=== PATIENT | male | born 1950 | race Caucasian/White ===

== ENCOUNTER 2016-04-18 02:57 | Observation (INO) ==
--- NOTE | 2016-04-18 03:14 | Emergency Department Note ---
Disposition Clinical Impression: Pneumonia, Abdominal pain Disposition: Admitted As Inpatient Condition: Fair Referrals: Manisha Crespo MD [Primary Care Provider] - Forms: Work/School Release, ED Satisfaction Letter Time of Disposition: 09:20 ([facility] [place]) Abdominal Pain HPI - General Chief Complaint: ED Abdominal Pain Stated Complaint: Pain when using bathroom, became pale, diaphoretic Time Seen by Provider: 04/18/16 03:01 Source: EMS, other (caregiver call and advised of episode) Mode of arrival: EMS Limitations: language barrier, physical limitation, other (DD) Nursing Notes Reviewed: Yes Vital Signs Reviewed: Yes - History of Present Illness HPI Narrative: Developmentally disabled 66-year-old male presents emergency room who was trying to have a bowel movement apparently had a syncopal episode while on the toilet is unclear whether he passed out or nearly passed out that the patient was noted to have a pulse and was still breathing and EMS found him stated that he was still somewhat diaphoretic and lightheaded patient is moaning and groaning upon presentation emergency room when asked if his belly hurt he shakes his head yes and moans no reported history of fever chills cough congestion unknown last bowel movement unknown last actual urination patient appears to be extremely agitated and uncomfortable Pt Subjective Complaint: abdominal pain Onset (ago): unknown Consistency: constant Location: diffuse Pain Severity: severe Quality: cramping Worsens with: movement Associated symptoms: Reports: constipation, syncope (near). Denies: nausea, vomiting, diarrhea, fever, chills, dysuria, hematemesis, hematochezia, melena, anorexia Treatments prior to arrival: none - Related Data Home Medications Medication Instructions Recorded Confirmed Allopurinol [Zyloprim] 100 mg PO DAILY 11/11/14 09/15/15 Calcium Carbonate/Vitamin D3 1 each PO DAILY 11/11/14 09/15/15 [Calcium 500-Vit D3 400 Tablet] Docusate Sodium [Dulcolax Stool 100 mg PO BID 11/11/14 09/15/15 Softener] Finasteride 5 mg PO DAILY 11/11/14 09/15/15 Folic Acid/Mv,Fe,Min [Centrum 1 each PO DAILY 11/11/14 09/15/15 Multivitamin Tab Chew] Galzin 50 mg PO DAILY 11/11/14 09/15/15 Hydrochlorothiazide 12.5 mg PO DAILY 11/11/14 09/15/15 Levothyroxine Sodium [Synthroid] 200 mcg PO DAILY 11/11/14 09/15/15 Magnesium Oxide [Magnesium] 400 mg PO DAILY 11/11/14 09/15/15 Niacin 500 mg PO DAILY 11/11/14 09/15/15 Olopatadine HCl [Patanol] 5 ml OP BID 11/11/14 09/15/15 Peg 400/Hypromellose/Glycerin 15 ml OP BID 11/11/14 09/15/15 [Artificial Tears Drops] Primidone [Mysoline] 50 mg PO TID 11/11/14 09/15/15 Rivaroxaban [Xarelto] 20 mg PO DAILY 11/11/14 09/15/15 Tamsulosin HCl [Flomax] 0.4 mg PO DAILY 11/11/14 09/15/15 Phenytoin [Dilantin] 100 mg PO TID 03/14/15 09/15/15 Acetaminophen [Tylenol] 650 mg PO DAILY 09/15/15 09/15/15 Calcium Carbonate/Vitamin D3 1 each PO 09/15/15 [Oyster Shell 500-Vit D3 200 Tb] Levothyroxine [Synthroid] 25 mcg PO DAILY 09/15/15 09/15/15 Previous Rx's Medication Instructions Recorded Azithromycin [Zithromax] 250 mg PO Q24H #3 tablet 09/16/15 Cefuroxime PO [Ceftin] 500 mg PO Q12HR #6 tablet 09/16/15 Lactobacillus [Culturelle] 1 each PO BID #6 cap.sprink 09/16/15 Allergies Allergy/AdvReac Type Severity Reaction Status Date / Time Cinnamon Allergy See Verified 09/15/15 09:25 Comments clove Allergy See Verified 09/15/15 09:25 Comments Sulfa (Sulfonamide Allergy Hives Verified 09/15/15 09:25 Antibiotics) trimethoprim Allergy Hives Verified 09/15/15 09:25 All systems ED: reviewed and negative except as stated. Constitutional: Denies: fever, chills, weakness Eyes: Denies: vision change ENT ED: Denies: ear pain Cardiovascular: Reports: syncope (near). Denies: chest pain, palpitations Respiratory: Denies: cough, dyspnea, wheezes Gastrointestinal: Reports: abdominal pain, nausea, constipation. Denies: vomiting Genitourinary: Denies: urgency, dysuria, frequency, hematuria Musculoskeletal: Denies: back pain, neck pain Integumentary: Denies: rash, abrasion Neurological: Denies: headache Psychiatric: Denies: anxiety Endocrine: Denies: fatigue Hematological/Lymphatic: Denies: easy bleeding Allergic/Immunologic: Denies: facial swelling Abdominal Pain PMH - Past Medical History Medical history: Reports: arthritis, DVT, peripheral artery disease, seizures, thyroid disease, other (DD) Male Surgical History: Reports: other Psychiatric history: Reports: no psych history - Social History Smoking status: Never smoker Alcohol use: Reports: none Drug use: Reports: none Physical Exam - General Limitations: language barrier, physical limitation, other (DD) General appearance: alert, other (agitated) - Head Head exam: atraumatic, normocephalic, normal inspection - Eye Eye exam: Present: normal appearance, PERRL, EOMI, other (Low-set ears long face Downs appearance) - ENT ENT exam: normal exam, normal oropharynx, mucous membranes moist, TM's normal bilaterally, normal external ear exam - Neck Neck exam: Present: normal inspection, full ROM, trachea midline - Chest Chest inspection: Present: normal inspection, symmetric chest wall rise - Respiratory Respiratory exam: Present: normal lung sounds bilaterally - Cardiovascular Cardiovascular exam: Present: regular rate, normal rhythm, normal heart sounds - Abdominal Exam Abdominal exam: Present: soft, tenderness, distention, guarding, diminished bowel sounds, other (tympanetic). Absent: mass, pulsatile mass - Expanded Upper Extremity Exam Shoulder exam: Present: normal inspection, full ROM Arm exam: Present: normal inspection, full ROM Elbow exam: Present: normal inspection, full ROM Forearm/Wrist exam: Present: normal inspection, full ROM Hand exam: Present: normal inspection, full ROM Vascular exam: Normal: capillary refill, radial pulse - Expanded Lower Extremity Exam Hip/Pelvis exam: Present: normal inspection, full ROM Upper leg exam: Present: normal inspection, full ROM Knee exam: Present: normal inspection, full ROM Lower leg exam: Present: normal inspection, full ROM Ankle exam: Present: normal inspection, full ROM Foot/toe exam: Present: normal inspection, full ROM Neurovascular/Tendon exam: Absent: motor deficit, sensory deficit, tendon deficit - Back Exam Back exam: Present: normal inspection, full ROM - Neurological Exam Neurological exam: Present: alert, oriented X3, CN II-XII intact - Psychiatric Psychiatric exam: Present: agitated - Skin Skin exam: Present: warm, dry, intact, normal color Course Course Narrative: patient immediately seen and examined CAT scan laboratory data wereordered - Reevaluation(s) Reevaluation #1: Patient is resting comfortably after receiving Haldol we will start an IV and he can also get some sleep he was started with his initial dose of antibiotics here in the emergency room with Dr. Pringle agreed for admission after getting laboratory results patient [facility] stable condition Vital Signs Temperature 98.6 F 04/18/16 03:03 Pulse Rate 82 04/18/16 03:03 Respiratory Rate 18 04/18/16 03:03 Blood Pressure 122/48 04/18/16 03:03 O2 Sat by Pulse Oximetry 93 L 04/18/16 03:03 Temperature 0 F L 04/18/16 04:43 Pulse Rate 89 04/18/16 07:00 Respiratory Rate 18 04/18/16 07:00 Blood Pressure 79/57 04/18/16 07:00 O2 Sat by Pulse Oximetry 96 04/18/16 07:00 Oxygen Delivery Oxygen Delivery Nasal Cannula Abdominal Pain - MDM Narrative Medical decision making narrative: Patient also has considerations for congestive heart failure pneumonia or infectious etiology even C. difficile - Differential Diagnosis Differential Diagnosis: Likely: abdominal pain non-specific, constipation, colonic obstruction, small bowel obstruction - Medical Records Medical records reviewed: Yes I reviewed the patient's medical records. - Lab Data Lab results reviewed: Yes I reviewed the patient's lab results. - Radiology Data Radiology results reviewed: Yes I reviewed the patient's radiology results. - EKG Data EKG attestation: Yes I reviewed and interpreted this EKG. EKG results narrative: Normal sinus rhythm rate 87. [address] 339 axis Critical Care Time Critical Care Time: Yes Total Critical Care Time: 25 Attestation: Critical care performed:25 min patient being developmentally disabled trying to figure out the etiology termination of where the pain or discomfort is coming from this individual because is not able to carry on a conversation also had was done initially results and this did take significantly longer because of delay from laboratory patient was transferred to [facility] for further care management after discussion with Time is exclusive of separately billable procedures. Time includes: direct patient care, patient reassessment, coordination of patient care, interpretation of data (laboratory data, radiology data, and respiratory data), review of patient's medical records, medical consultation and documentation of patient care. Procedures included in critical care time: Procedures excluded from critical care time:
[2016-04-18] MEDS ORDERED: Haloperidol Lactate 5 MG/ML VIAL IM ONE (05:16)
[2016-04-18] MEDS ORDERED: *HR* LORazepam 2 MG/ML VIAL IM ONE (05:17)
[2016-04-18] MEDS ORDERED: Bumetanide 1 MG/4 ML VIAL IVP ONE (07:19)
[2016-04-18] MEDS ORDERED: Levofloxacin 500 MG/100 ML 500 MG/100 ML BAG IVPB STA (07:36)
[2016-04-18 08:13] LABS: INR 1.3; Prothrombin Time 14.6 Seconds (9.4-12.1)
[2016-04-18 08:15] LABS: Activated Partial Thrombo Time 47.8 Seconds (26.0-36.0)
[2016-04-18 08:18] LABS: Basophils % 0.2 %; Eosinophils % 0.1 %; Immature Granulocytes % 0.4 % (0-4); Lymphocytes # 0.7 K/mcL (0.6-4.6); Lymphocytes % 4.1 %; Mean Corpuscular HGB Conc 33.3 g/dL (31.6-35.5); Mean Corpuscular Hemoglobin 32.9 pg (28.0-33.3); Mean Corpuscular Volume 98.7 fL (83.0-100.0); Mean Platelet Volume 10.3 fL (9.4-12.4); Monocytes % 5.8 %; Platelet Count 163 K/mcL (140-400); Red Blood Count 4.56 M/mcL (4.19-5.50); Red Cell Distribution Width 15.8 % (11.5-14.5); Segmented Neutrophils % 89.4 %
[2016-04-18 08:26] LABS: Neutrophils # 15.4 K/mcL (1.6-8.9)
[2016-04-18 08:52] LABS: BUN/Creatinine Ratio 12 (6-26); Blood Urea Nitrogen 15 mg/dL (8-26); Calcium 9.3 mg/dL (8.6-10.8); Carbon Dioxide 23 mEq/L (19-29); Chloride 101 mEq/L (98-109); Glucose 131 mg/dL (70-99); Osmolality,Calculated 291 (280-300); Potassium 4.3 mEq/L (3.5-4.5); Sodium 139 mEq/L (136-145); eGFR For African Americans > 60 (> 60); eGFR For Non-African Americans 55 (> 60)
[2016-04-18] MEDS ORDERED: *HR* Dextrose 50 % in Water (Syg) 50 ML SYRINGE IVP PRN (10:53)
[2016-04-18] MEDS ORDERED: Ondansetron 4 MG/2 ML VIAL IVP PRN (10:53)
[2016-04-18] MEDS ORDERED: Dextrose Gel 15 GM PO PRN ×2 (10:53)
[2016-04-18] MEDS ORDERED: D5% in Water 1,000 ML IV PRN (10:53)
[2016-04-18] MEDS ORDERED: 0.9 % Sodium Chloride 1,000 ML IVC SCH (10:53)
[2016-04-18] MEDS ORDERED: Naloxone 0.4 MG/ML INJ IVP PRN (10:53)
[2016-04-18 11:01] LABS: Bilirubin,Urine Negative (Negative); Blood,Urine Negative (Negative); Clarity,Urine Clear (Clear); Color,Urine Yellow (Yellow); Glucose,Urine (UA) Normal (Normal); Ketones,Urine Trace mg/dL (Negative); Leukocyte Esterase,Urine Negative (Negative); Nitrite,Urine Negative (Negative); Protein,Urine Negative (Neg-Trace); Urobilinogen,Urine Normal (Normal)
[2016-04-18] MEDS: Insulin LISPRO 300 UNITS/3 ML VIAL SQ SCH ×2 (12:20→22:02)
--- NOTE | 2016-04-18 14:35 | Internal Med History&Physical ---
Date of Encounter: 04/18/16 Time of Encounter: 14:10 Assessment and Plan (1) Pneumonia Current visit: Yes Status: Acute He was given Levaquin in emergency room. I will continue this with lactobacillus. Qualifiers: Pneumonia type: due to unspecified organism Laterality: bilateral Lung location: lower lobe of lung Qualified Code(s): J18.9 - Pneumonia, unspecified organism (2) Azotemia Current visit: No Status: Acute Will hold hydrochlorothiazide and recheck labs in a.m. (3) Hyperuricemia Current visit: No Status: Chronic We will check uric acid level in a.m. Internal Medicine - H&P: HPI Chief complaint: Near syncope Admitted From: Home Plans for Post Hospital Care: Home History of present illness: Mr. Tracey is a 66 year old male who was sent to emergency room by the [facility] staff after he had a near syncope/syncope episode while sitting on the toilet. He is nonverbal. In the emergency room he nodded yes when asked if his belly hurt. CT showed no acute abdominal changes but did reveal bibasilar infiltrates. Leukocytosis present. He was admitted to [facility] floor with diagnosis of pneumonia. He was admitted to [facility] September 2015 with a diagnosis of bronchitis. He has been hospitalized March 2015, September 2014, and March 2014 with pneumonia. His smoking history is not known. A CT of the chest was done September 2014 which showed right lung infiltrate. Past Med Surg Social Fam HX - Past Medical History Medical history: arthritis, DVT, peripheral artery disease, seizures, thyroid disease, other (DD) Psychiatric history: no psych history - Social History Smoking Status: Never smoker Smokeless Tobacco Status: No Alcohol use: none Drug use: none Internal Medicine - H&P: Meds Allopurinol [Zyloprim] 100 mg PO DAILY 11/11/14 [History] Calcium Carbonate/Vitamin D3 [Calcium 500-Vit D3 400 Tablet] 1 each PO DAILY 07/23 [History] Docusate Sodium [Dulcolax Stool Softener] 100 mg PO BID 11/11/14 [History] Finasteride 5 mg PO DAILY 11/11/14 [History] Folic Acid/Mv,Fe,Min [Centrum Multivitamin Tab Chew] 1 each PO DAILY 11/11/14 [ History] Galzin 50 mg PO DAILY 11/11/14 [History] Hydrochlorothiazide 12.5 mg PO DAILY 11/11/14 [History] Levothyroxine Sodium [Synthroid] 200 mcg PO DAILY 11/11/14 [History] Magnesium Oxide [Magnesium] 400 mg PO DAILY 11/11/14 [History] Niacin 500 mg PO DAILY 11/11/14 [History] Olopatadine HCl [Patanol] 5 ml OP BID 11/11/14 [History] Peg 400/Hypromellose/Glycerin [Artificial Tears Drops] 15 ml OP BID 11/11/14 [ History] Primidone [Mysoline] 50 mg PO TID 11/11/14 [History] Rivaroxaban [Xarelto] 20 mg PO DAILY 11/11/14 [History] Tamsulosin HCl [Flomax] 0.4 mg PO DAILY 11/11/14 [History] Phenytoin [Dilantin] 100 mg PO TID 03/14/15 [History] Acetaminophen [Tylenol] 650 mg PO DAILY 09/15/15 [History] Calcium Carbonate/Vitamin D3 [Oyster Shell 500-Vit D3 200 Tb] 1 each PO [History] Levothyroxine [Synthroid] 25 mcg PO DAILY 09/15/15 [History] Azithromycin [Zithromax] 250 mg PO Q24H #3 tablet 09/16/15 [Rx] Cefuroxime PO [Ceftin] 500 mg PO Q12HR #6 tablet 09/16/15 [Rx] Lactobacillus [Culturelle] 1 each PO BID #6 cap.sprink 09/16/15 [Rx] Allergies Cinnamon Allergy (Verified 09/15/15 09:25) See Comments clove Allergy (Verified 09/15/15 09:25) See Comments Sulfa (Sulfonamide Antibiotics) Allergy (Verified 09/15/15 09:25) Hives trimethoprim Allergy (Verified 09/15/15 09:25) Hives All Systems PM: A 10-system review of systems was performed and is negative for pertinent findings except as documented above in the HPI. Review of systems: Review of systems is obtained from old records since he is nonverbal. Gen.: His weight has decreased from 211 pounds at the September 2014 hospitalization to present weight of approximately 180 pounds. Cardiovascular: He has a history of DVT and varicose veins. There is no documented hypertension heart failure or other cardiovascular disease. A stress test was reportedly done in 2008 with results not known. Respiratory: As per history of present illness GI: He has chronic constipation, diverticulosis, and bowel resection 2004 not otherwise specified. There is no documented disorders with his liver gallbladder or exocrine pancreas. He had a swallowing evaluation during his hospital stay September 2014 which showed no evidence of laryngeal penetration or aspiration. There was coughing noted after swallowing thin liquid barium. He was placed on pureed diet with nectar thick liquids. : He has presumed BPH and had urinary retention during a August 2014 hospitalization. He is on Flomax.. He has been diagnosed with CKD stage III. There is no other documented kidney or bladder disorders Endocrine: He has hypothyroidism, hyperuricemia, and presumed hyperlipidemia. He does not have known diabetes Neurologic: He is on Dilantin presumably for seizures. He has not had large distribution strokes. He does have MRDD/Down syndrome as per above Hematology/oncology: He has no documented blood disorders or internal malignancy. He has had thrombocytopenia in the past that resolved. Psychiatric: He has no known anxiety, depression, or other mental health issues Musk skeletal: He has no known gout or osteoporosis. He has mild arthritis. Dermatologic. He has diagnosis of dyshidrotic eczema, onychomycosis, and chronic venous stasis pigmentation changes - Constitutional Vitals: Temp Pulse Resp BP Pulse Ox 100.2 F H 96 18 128/80 95 04/18/16 11:02 04/18/16 10:58 04/18/16 11:02 04/18/16 11:02 04/18/16 10:58 Exam: Gen.: He is a well-developed obese male lying in bed who appears in no severe distress. He does not respond verbally to voice or light touch. He moans and yells when moved in certain positions. HEENT: Head is atraumatic and normocephalic. Eyes: His gaze is conjugate. He does not open his eyes spontaneously. Mouth: He does not open his mouth for examination Neck: There is no thyromegaly or adenopathy noted. Heart: Regular without murmurs gallops or ectopics. Lungs: No wheezes or crackles are heard. Abdomen: He has a large abdomen. It is nontender to palpation. There is a well -healed lower midline abdominal scar. Extremities: He has chronic venous stasis pigmentation changes bilaterally on his lower legs and feet. Dorsalis pedis and posttibial pulses are 1 traced 1+ palpable. He has slight deformities of his feet bilaterally. Neurologic: Mental status: He does not respond to voice or light touch except he moans when moved in certain positions. Cranial nerves: His gaze is conjugate. He has little spontaneous facial movements. Motor: He has equal arm tone on passive range of motion. He withdraws both feet to Babinski testing. No further neurologic testing is attempted. Skin: Warm and dry. Internal Med - H&P Results - Labs CBC & Chem 7: 04/18/16 07:55 04/18/16 07:55
--- NOTE | 2016-04-18 15:09 | Electrocardiograph Report ---
[facility] Test Date: 2016-04-18 Pat Name: Evan Tracey Department: [id number] Room: [facility] Gender: M Rn Ccu: Tegan : 1950 Requested By: Shi Lopez Order Number: [id number] Reading MD: Redd Cornejo DO Measurements Intervals [place] Rate: 87 P: 85 [place]: 184 QRS: 56 QRSD: 78 T: 72 QT: 339 QTc: 384 Interpretive Statements Sinus rhythm Low QRS voltage Nonspecific ST-T changes Electronically Signed On 04-18-16 14:10:06 EST by Redd Cornejo DO
[2016-04-18] MEDS: Primidone 50 MG TABLET PO SCH ×2 (16:56→22:18)
[2016-04-18] MEDS: Artificial Tears SOLN 15 ML BOTTLE OP SCH (22:17)
[2016-04-18] MEDS: Lactobacillus 1 EACH CAP.SPRINK PO SCH (22:18)
[2016-04-18] MEDS: (Olopatadine Hcl [Patanol] 5 ML) OP SCH (22:20)
[2016-04-19] MEDS: Primidone 50 MG TABLET PO SCH ×2 (00:33→08:14)
[2016-04-19] MEDS: Lactobacillus 1 EACH CAP.SPRINK PO SCH ×2 (00:33→08:13)
[2016-04-19] MEDS: Albuterol 2.5 MG/3 ML NEBULIZER IH PRN ×2 (01:39→09:02)
[2016-04-19 04:16] LABS: Basophils % 0.2 %; Eosinophils # 0.1 K/mcL (0.0-0.6); Eosinophils % 0.3 %; Hematocrit 39.5 % (37.5-50.1); Hemoglobin 13.3 g/dL (12.9-16.9); Immature Granulocytes % 0.4 % (0-4); Lymphocytes # 1.1 K/mcL (0.6-4.6); Lymphocytes % 6.8 %; Mean Corpuscular HGB Conc 33.7 g/dL (31.6-35.5); Mean Corpuscular Hemoglobin 32.9 pg (28.0-33.3); Mean Corpuscular Volume 97.8 fL (83.0-100.0); Mean Platelet Volume 10.2 fL (9.4-12.4); Monocytes # 0.7 K/mcL (0.0-1.3); Platelet Count 147 K/mcL (140-400); Red Blood Count 4.04 M/mcL (4.19-5.50); Red Cell Distribution Width 16.1 % (11.5-14.5); Segmented Neutrophils % 88.3 %
[2016-04-19 04:19] LABS: Neutrophils # 14.8 K/mcL (1.6-8.9)
[2016-04-19 04:37] LABS: BUN/Creatinine Ratio 17 (6-26); Blood Urea Nitrogen 22 mg/dL (8-26); Calcium 8.4 mg/dL (8.6-10.8); Carbon Dioxide 27 mEq/L (19-29); Chloride 101 mEq/L (98-109); Glucose 116 mg/dL (70-99); Magnesium 1.8 mg/dL (1.6-2.6); Osmolality,Calculated 290 (280-300); Phosphorous 2.9 mg/dL (2.3-4.7); Sodium 138 mEq/L (136-145); eGFR For African Americans > 60 (> 60); eGFR For Non-African Americans 54 (> 60)
[2016-04-19] MEDS ORDERED: GuaiFENesin Liq 200 MG/10 ML UDC PO SCH (06:00)
[2016-04-19] MEDS ORDERED: Levothyroxine 25 MCG TABLET PO SCH (06:30)
[2016-04-19] MEDS: Insulin LISPRO 300 UNITS/3 ML VIAL SQ SCH (08:06)
[2016-04-19] MEDS: Artificial Tears SOLN 15 ML BOTTLE OP SCH (08:15)
[2016-04-19] MEDS: (Olopatadine Hcl [Patanol] 5 ML) OP SCH (08:16)
[2016-04-19] MEDS ORDERED: Levofloxacin 500 MG/100 ML 500 MG/100 ML BAG IVPB SCH (09:00)
[2016-04-19] MEDS ORDERED: ZINC ACETATE 50 MG PO SCH (09:00)
[2016-04-19] MEDS ORDERED: NIACIN 500 MG PO SCH (09:00)
[2016-04-19] MEDS ORDERED: Finasteride 5 MG TABLET PO SCH (09:00)
[2016-04-19] MEDS ORDERED: *HR* Rivaroxaban 10 MG TABLET PO SCH (09:00)
[2016-04-19] MEDS ORDERED: Magnesium Oxide 400 MG TABLET PO SCH (09:00)
[2016-04-19] MEDS ORDERED: Multivit/Ca/Min/Fe/FA 1 TAB TABLET PO SCH (09:00)
[2016-04-19] MEDS ORDERED: Pantoprazole 40 MG VIAL IVP SCH (09:00)
[2016-04-19] MEDS ORDERED: Acetaminophen 325 MG TABLET PO SCH (09:00)
--- NOTE | 2016-04-19 09:52 | Discharge Summary ---
Date of Encounter: 04/19/16 Time of Encounter: 09:35 - Discharge Diagnosis (1) Pneumonia Priority: Primary Status: Acute Qualifiers: Pneumonia type: due to unspecified organism Laterality: bilateral Lung location: lower lobe of lung Qualified Code(s): J18.9 - Pneumonia, unspecified organism (2) Azotemia Priority: Secondary Status: Chronic (3) Hyperuricemia Priority: Secondary Status: Chronic - Discharge Medications Prescriptions: Finasteride [Proscar] 5 mg PO DAILY #30 tablet Lactobacillus [Culturelle] 1 each PO BID #10 cap.sprink Levofloxacin [Levaquin] 500 mg PO DAILY #5 tablet Tamsulosin HCl [Flomax] 0.4 mg PO DAILY #30 cap.er.24h Home Medications: Allopurinol [Zyloprim] 100 mg PO DAILY 11/11/14 [History] Calcium Carbonate/Vitamin D3 [Calcium 500-Vit D3 400 Tablet] 1 each PO DAILY 07/23 [History] Docusate Sodium [Dulcolax Stool Softener] 100 mg PO BID 11/11/14 [History] Finasteride 5 mg PO DAILY 11/11/14 [History] Folic Acid/Mv,Fe,Min [Centrum Multivitamin Tab Chew] 1 each PO DAILY 11/11/14 [ History] Galzin 50 mg PO DAILY 11/11/14 [History] Hydrochlorothiazide 12.5 mg PO DAILY 11/11/14 [History] Levothyroxine Sodium [Synthroid] 200 mcg PO DAILY 11/11/14 [History] Magnesium Oxide [Magnesium] 400 mg PO DAILY 11/11/14 [History] Niacin 500 mg PO DAILY 11/11/14 [History] Olopatadine HCl [Patanol] 5 ml OP BID 11/11/14 [History] Peg 400/Hypromellose/Glycerin [Artificial Tears Drops] 15 ml OP BID 11/11/14 [ History] Primidone [Mysoline] 50 mg PO TID 11/11/14 [History] Rivaroxaban [Xarelto] 20 mg PO DAILY 11/11/14 [History] Tamsulosin HCl [Flomax] 0.4 mg PO DAILY 11/11/14 [History] Phenytoin [Dilantin] 100 mg PO TID 03/14/15 [History] Acetaminophen [Tylenol] 650 mg PO DAILY 09/15/15 [History] Calcium Carbonate/Vitamin D3 [Oyster Shell 500-Vit D3 200 Tb] 1 each PO [History] Levothyroxine [Synthroid] 25 mcg PO DAILY 09/15/15 [History] Finasteride [Proscar] 5 mg PO DAILY #30 tablet 04/19/16 [Rx] Lactobacillus [Culturelle] 1 each PO BID #10 cap.sprink 04/19/16 [Rx] Levofloxacin [Levaquin] 500 mg PO DAILY #5 tablet 04/19/16 [Rx] Tamsulosin HCl [Flomax] 0.4 mg PO DAILY #30 cap.er.24h 04/19/16 [Rx] Allergies/Adverse Reactions: Allergies Cinnamon Allergy (Verified 09/15/15 09:25) See Comments clove Allergy (Verified 09/15/15 09:25) See Comments Sulfa (Sulfonamide Antibiotics) Allergy (Verified 09/15/15 09:25) Hives trimethoprim Allergy (Verified 09/15/15 09:25) Hives Date of admission: 04/18/16 10:33 Primary care physician: Manisha Crespo Consults: 04/18/16 18:06 Consult to Nutrition [CONS] Routine Comment: Consulting Provider: NUTRITION Reason for Dietary Consult: MST Score - Patient Status Disposition: Home, Self-Care Condition: Fair Overall status at discharge: patient is progressing back to baseline - Discharge Instructions Follow Up With: Manisha Crespo MD [Primary Care Provider] - 1 week - Diet and Activity Activity: resume usual activities as tolerated Hospital course: Mr. Tracey is a 66 year old male who was sent to emergency room by the [facility] staff after he had a near syncope/syncope episode while sitting on the toilet. He is nonverbal. In the emergency room he nodded yes when asked if his belly hurt. CT showed no acute abdominal changes but did reveal bibasilar infiltrates. Leukocytosis was present. [facility]. Initial orders were written by the emergency room physician. I saw him on April 18 and performed the history and physical. He was started on IV Levaquin. I added lactobacillus. He spiked occasional low-grade temperature during his hospital stay. His WBC improved slightly to 16.7 K on April 19 with persistent left shift with segs 88.3%. He was more awake and alert however and seemed clinically back to his baseline. His IV became dislodged and I felt he could be discharged back to the [facility] on oral antibiotics and probiotics to complete a seven-day course. His Flomax and Proscar were continued as on admission as at home. He had greater than 200 mL of urine found on bladder scan. A Mcmahan catheter was inserted and this will remain in place at discharge. His PCP can refer him to urology as needed for further intervention. His creatinine was 1.32 on the day of discharge which is similar to previous labs. He has chronic kidney disease stage III. He will be sent back to the [facility] today to follow with Dr. Crespo within 1 week. Room air oximetry will be checked prior to discharge. - Time Spent with Patient Total time spent providing and/or coordinating discharge services: - Constitutional Vitals: Temp Pulse Resp BP Pulse Ox 100.2 F H 89 20 125/65 96 04/19/16 06:32 04/19/16 06:32 04/19/16 06:32 04/19/16 06:32 04/19/16 06:32
[2016-04-19 10:33] VITALS: BP 124/78
[2016-04-19] MEDS ORDERED: FLU VACC QS2016-17 36MOS UP/PF 0.5 ML SYRINGE IM ONE (11:17)
== END 2016-04-19 11:49 | disposition home or self-care (01) ==
LOC: EMEROOPIK 02:57 → INPPIK 02:57
PROVIDERS: ADMIT Internal Medicine; ATTEND Internal Medicine

== ENCOUNTER 2016-07-05 06:48 | Inpatient (IN) ==
[2016-07-05] MEDS ORDERED: Ipratropium/Albuterol Neb 3 ML IH ONE (06:59)
--- NOTE | 2016-07-05 07:06 | Emergency Department Note ---
Disposition Clinical Impression: CHF (congestive heart failure) Qualifiers: Congestive heart failure type: unspecified congestive heart failure type Congestive heart failure chronicity: acute Qualified Code(s): I50.9 - Heart failure, unspecified Pneumonia Qualifiers: Pneumonia type: due to unspecified organism Laterality: right Lung location: upper lobe of lung Qualified Code(s): J18.1 - Lobar pneumonia, unspecified organism Disposition: Admitted As Inpatient Condition: Fair Referrals: Manisha Crespo MD [Primary Care Provider] - Forms: Work/School Release, ED Satisfaction Letter General Adult HPI - General Chief complaint: ED General Medical Stated complaint: low 02 sat, ams Source: patient, EMS, other (MRDD care home) Mode of arrival: EMS Limitations: physical limitation, other (severe MRDD) Nursing Notes Reviewed: Yes Vital Signs Reviewed: Yes - History of Present Illness HPI Narrative: Patient presents to the ED via EMS from [facility] with report of low oxygen saturation and altered mental status. Per EMS they were told by the facility the patient was 85% on room air as well as on 2-3 L of oxygen. They state they increased his oxygen to 4 L and his saturation improved to 92%. He did not voice any concerns to them and was not in any distress. He has severe MRDD and appears to have difficulty communicating. EMS did not provide any other interventions. They are not sure what the report of altered mental status is referring to. Patient apparently has a history of COPD but it is unclear whether he normally wears oxygen. Patient mumbles unclear yes and no type answers to most questions. He appears to be answering yes when asked if he has chest pain or shortness of breath. He does not seem to have any abdominal pain. No nausea or vomiting. No fever or chills. Pain Scale: 0 - Related Data Home Medications Medication Instructions Recorded Confirmed Allopurinol [Zyloprim] 100 mg PO DAILY 11/11/14 07/05/16 Calcium Carbonate/Vitamin D3 1 each PO DAILY 11/11/14 07/05/16 [Calcium 500-Vit D3 400 Tablet] Docusate Sodium [Dulcolax Stool 100 mg PO BID 11/11/14 07/05/16 Softener] Folic Acid/Mv,Fe,Min [Centrum 1 each PO DAILY 11/11/14 07/05/16 Multivitamin Tab Chew] Galzin 50 mg PO DAILY 11/11/14 07/05/16 Hydrochlorothiazide 12.5 mg PO DAILY 11/11/14 07/05/16 Magnesium Oxide [Magnesium] 400 mg PO DAILY 11/11/14 07/05/16 Niacin 500 mg PO DAILY 11/11/14 07/05/16 Olopatadine HCl [Patanol] 5 ml OP BID 11/11/14 07/05/16 Peg 400/Hypromellose/Glycerin 15 ml OP BID 11/11/14 07/05/16 [Artificial Tears Drops] Primidone [Mysoline] 50 mg PO TID 11/11/14 07/05/16 Rivaroxaban [Xarelto] 20 mg PO DAILY 11/11/14 07/05/16 Phenytoin [Dilantin] 100 mg PO TID 03/14/15 07/05/16 Acetaminophen [Tylenol] 650 mg PO DAILY 09/15/15 07/05/16 Calcium Carbonate/Vitamin D3 1 each PO 09/15/15 [Oyster Shell 500-Vit D3 200 Tb] Levothyroxine [Synthroid] 25 mcg PO DAILY 09/15/15 07/05/16 Albuterol Neb [Proventil Neb] 2.5 mg IH Q4HR 07/05/16 07/05/16 Loperamide [Imodium] 4 mg PO NOW PRN 07/05/16 07/05/16 Nitroglycerin [Nitrostat] 0.4 mg SL 07/05/16 Previous Rx's Medication Instructions Recorded Finasteride [Proscar] 5 mg PO DAILY #30 tablet 04/19/16 Lactobacillus [Culturelle] 1 each PO BID #10 cap.sprink 04/19/16 Tamsulosin HCl [Flomax] 0.4 mg PO DAILY #30 cap.er.24h 04/19/16 Levofloxacin [Levaquin] 500 mg PO DAILY #7 tablet 06/25/16 Allergies Allergy/AdvReac Type Severity Reaction Status Date / Time Cinnamon Allergy See Verified 07/05/16 06:49 Comments clove Allergy See Verified 07/05/16 06:49 Comments Sulfa (Sulfonamide Allergy Hives Verified 07/05/16 06:49 Antibiotics) trimethoprim Allergy Hives Verified 07/05/16 06:49 Constitutional: Denies: fever, chills, weakness, weight change Eyes: Denies: eye pain, eye discharge, vision change ENT ED: Denies: ear pain, throat pain, dental pain, hearing loss, epistaxis, congestion, dysphagia Cardiovascular: Reports: chest pain. Denies: palpitations, dyspnea on exertion , edema, syncope Respiratory: Reports: dyspnea. Denies: cough, wheezes, hemoptysis, stridor Gastrointestinal: Denies: abdominal pain, nausea, vomiting, diarrhea, constipation, hematemesis, melena, hematochezia Genitourinary: Denies: urgency, dysuria, frequency, hematuria Musculoskeletal: Denies: back pain, neck pain, arthralgia, myalgia Integumentary: Denies: rash, abrasion, lesions Neurological: Denies: headache, weakness, numbness, paresthesias, confusion, abnormal gait, vertigo Psychiatric: Denies: anxiety, depression, suicidal thoughts, homicidal thoughts , auditory hallucinations, visual hallucinations Endocrine: Denies: fatigue Hematological/Lymphatic: Denies: easy bleeding, easy bruising Allergic/Immunologic: Denies: facial swelling, urticaria Past Medical History - Past Medical History Medical history: Reports: arthritis, DVT, peripheral artery disease, seizures, thyroid disease, other Surgical history: Reports: other Psychiatric history: Reports: no psych history - Social History Smoking Status: Never smoker Smokeless Tobacco Status: No Alcohol use: Reports: none Drug use: Reports: none Physical Exam - General Limitations: other (severe MRDD) General appearance: alert - Head Head exam: atraumatic, normocephalic, normal inspection - Eye Eye exam: Present: normal appearance, PERRL, EOMI - ENT ENT exam: normal exam, normal oropharynx, mucous membranes moist - Neck Neck exam: Present: normal inspection, full ROM, trachea midline. Absent: lymphadenopathy - Chest Chest inspection: Present: normal inspection, symmetric chest wall rise - Respiratory Respiratory exam: Present: wheezes (scattered). Absent: respiratory distress - Expanded Respiratory Exam Location: rhonchi: Lower, Upper, Right, Left (scattered) - Cardiovascular Cardiovascular exam: Present: regular rate, normal rhythm, normal heart sounds - Abdominal Exam Abdominal exam: Present: soft, Non-Tender. Absent: tenderness, distention, guarding, rebound, rigidity - Extremities Exam Extremities exam: Present: normal inspection, full ROM, pedal edema (trace pitting bilaterally to knees). Absent: tenderness - Back Exam Back exam: Present: normal inspection, full ROM. Absent: tenderness - Neurological Exam Neurological exam: Present: alert - Psychiatric Psychiatric exam: Present: normal affect, normal mood - Skin Skin exam: Present: warm, dry, intact, normal color Course Course Narrative: Patient presents to the ED via EMS with report of low oxygen saturation and altered mental status. His facility was contacted for additional information. They clarified he does not normally wear oxygen. They state he was not altered but that he seemed to be lethargic when he was on the toilet having a bowel movement and had a brief period of not responding to them. He was never unconscious or unresponsive and did not fall. They state that he was seen in this ED recently and was given a diagnosis of pneumonia. No other recent illness or medication changes that they are aware of. Review of records shows that he was found to have a leukocytosis with left shift and possible infiltrates on chest CT on his last visit on June 25 and was prescribed a seven -day course of oral Levaquin. He was also seen here in April for a similar presentation and was found to have pneumonia and was admitted for IV antibiotics. He currently has some scattered wheezing and rhonchi on exam so he will be given a nebulizer treatment. His room air saturation here was 82%. He was placed back on oxygen and titrated up to 3 L to obtain a saturation in the low 90s. Will check lab work and obtain an EKG and chest x-ray as well to evaluate further for any persistent pneumonia or other cardiac or respiratory problems. - Reevaluation(s) Reevaluation #1: CBC shows a persistent leukocytosis with left shift. Coags are normal. Troponin is negative. Chest x-ray shows bilateral pulmonary edema with possible superimposed pneumonia. EKG shows sinus tachycardia with no ischemic changes. Additional labs are still pending at this time and are delayed due to equipment problems but will obtain IV access and [place]ma[place] and start antibiotics as well as diuretics. Will require admission for further management. Will contact hospitalist on-duty. Time: 08:38 Reevaluation #2: Spoke to the hospitalist demand generation manager who has accepted the patient. BMP and BNP are still pending at this time but will be followed as resulted by oncoming staff and hospitalist. Time: 08:56 Vital Signs Temperature 98.6 F 07/05/16 06:53 Pulse Rate 116 07/05/16 06:53 Respiratory Rate 20 07/05/16 06:53 Blood Pressure 113/61 07/05/16 06:53 O2 Sat by Pulse Oximetry 82 L 07/05/16 06:53 Temperature 98.6 F 07/05/16 06:55 Pulse Rate 111 07/05/16 07:25 Respiratory Rate 18 07/05/16 07:25 Blood Pressure 103/46 07/05/16 07:25 O2 Sat by Pulse Oximetry 95 07/05/16 07:25 Oxygen Delivery Oxygen Delivery Nasal Cannula Medical Decision Making - Differential Diagnosis COPD exacerbation, pneumonia, less likely ACS, PE or CHF - Medical Records Medical records reviewed: Yes I reviewed the patient's medical records. - Lab Data Lab results reviewed: Yes I reviewed the patient's lab results. Result diagrams: 07/05/16 07:20 Lab Results 07/05/16 07/05/16 07/05/16 Range/Units 07:20 07:20 07:20 WBC 15.6 H (4.3-11.1) K/mcL RBC 4.79 (4.19-5.50) M/mcL Hgb 15.6 (12.9-16.9) g/dL Hct 46.5 (37.5-50.1) % MCV 97.1 (83.0-100.0) fL MCH 32.6 (28.0-33.3) pg MCHC 33.5 (31.6-35.5) g/dL RDW 14.9 H (11.5-14.5) % Plt Count 179 (140-400) K/mcL MPV 9.9 (9.4-12.4) fL Immature Gran % 0.5 (0-4) % Seg Neutrophils % 93.1 % Lymphocytes % 2.4 % Monocytes % 3.8 % Eosinophils % 0.0 % Basophils % 0.2 % Neutrophils # 14.5 H (1.6-8.9) K/mcL Lymphocytes # 0.4 L (0.6-4.6) K/mcL Monocytes # 0.6 (0.0-1.3) K/mcL Eosinophils # 0.0 (0.0-0.6) K/mcL Basophils # 0.0 (0.0-0.2) K/mcL PT 12.6 H (9.4-12.1) Seconds INR 1.2 APTT 39.4 H (26.0-36.0) Seconds VBG Lactic Acid (0.5-2.2) mmol/L Troponin I 0.01 (0-0.03) ng/mL 07/05/16 Range/Units 08:03 WBC (4.3-11.1) K/mcL RBC (4.19-5.50) M/mcL Hgb (12.9-16.9) g/dL Hct (37.5-50.1) % MCV (83.0-100.0) fL MCH (28.0-33.3) pg MCHC (31.6-35.5) g/dL RDW (11.5-14.5) % Plt Count (140-400) K/mcL MPV (9.4-12.4) fL Immature Gran % (0-4) % Seg Neutrophils % % Lymphocytes % % Monocytes % % Eosinophils % % Basophils % % Neutrophils # (1.6-8.9) K/mcL Lymphocytes # (0.6-4.6) K/mcL Monocytes # (0.0-1.3) K/mcL Eosinophils # (0.0-0.6) K/mcL Basophils # (0.0-0.2) K/mcL PT (9.4-12.1) Seconds INR APTT (26.0-36.0) Seconds VBG Lactic Acid 2.2 (0.5-2.2) mmol/L Troponin I (0-0.03) ng/mL - Radiology Data Radiology results reviewed: Yes I reviewed the patient's radiology results. ITS Impressions Chest X-Ray 07/05/16 06:59 IMPRESSION: Pulmonary edema. Possible superimposed pneumonia right upper lobe. Rib defect of the left 6th rib. Consider dedicated rib films D/ / Amos Escobar MD / Amos Escobar MD Interpreting Provider: mAos Escobar MD - EKG Data EKG #1 EKG attestation: Yes I reviewed and interpreted this EKG. EKG shows normal: sinus rhythm Rate: tachycardia Rhythm: NSR [place]/QRS: normal Interpretation: no acute changes, unchanged when compared to prior tracing (date ) (06/25/16)
[2016-07-05 07:30] LABS: Basophils % 0.2 %; Hematocrit 46.5 % (37.5-50.1); Hemoglobin 15.6 g/dL (12.9-16.9); Immature Granulocytes % 0.5 % (0-4); Lymphocytes # 0.4 K/mcL (0.6-4.6); Lymphocytes % 2.4 %; Mean Corpuscular HGB Conc 33.5 g/dL (31.6-35.5); Mean Corpuscular Hemoglobin 32.6 pg (28.0-33.3); Mean Corpuscular Volume 97.1 fL (83.0-100.0); Mean Platelet Volume 9.9 fL (9.4-12.4); Monocytes # 0.6 K/mcL (0.0-1.3); Monocytes % 3.8 %; Neutrophils # 14.5 K/mcL (1.6-8.9); Platelet Count 179 K/mcL (140-400); Red Blood Count 4.79 M/mcL (4.19-5.50); Red Cell Distribution Width 14.9 % (11.5-14.5); Segmented Neutrophils % 93.1 %
[2016-07-05 07:35] LABS: INR 1.2; Prothrombin Time 12.6 Seconds (9.4-12.1)
[2016-07-05 07:38] LABS: Activated Partial Thrombo Time 39.4 Seconds (26.0-36.0)
[2016-07-05] MEDS ORDERED: Furosemide 40 MG/4 ML VIAL IVP ONE ×3 (08:06→10:30)
[2016-07-05] MEDS ORDERED: Naloxone 0.4 MG/ML INJ IVP PRN ×2 (08:57→09:26)
[2016-07-05] MEDS ORDERED: Levofloxacin 750 MG/150 ML 750 MG/150 ML BAG IVPB SCH (09:00)
[2016-07-05 09:50] LABS: Calcium 9.4 mg/dL (8.6-10.8); Potassium 4.2 mEq/L (3.5-4.5)
--- NOTE | 2016-07-05 11:54 | Internal Med History&Physical ---
Date of Encounter: 07/05/16 Time of Encounter: 11:30 Assessment and Plan (1) Pneumonia Current visit: Yes Status: Acute He was started on Levaquin in the emergency room. I will change him to IV Zosyn with doxycycline. Lactobacillus will be added. Further studies will be done as needed. Qualifiers: Pneumonia type: due to unspecified organism Laterality: right Lung location: upper lobe of lung Qualified Code(s): J18.1 - Lobar pneumonia, unspecified organism (2) Hypothyroidism Current visit: No Status: Chronic TSH was normal at 3.895 on 05/12/2016. Continue present dose Synthroid Qualifiers: Hypothyroidism type: unspecified Qualified Code(s): E03.9 - Hypothyroidism , unspecified (3) BPH (benign prostatic hyperplasia) Current visit: No Status: Chronic Continue Proscar and Flomax. Qualifiers: Prostatic enlargement morphology: unspecified morphology Lower urinary tract symptom presence: presence of symptoms unspecified Qualified Code(s): N40.0 - Benign prostatic hyperplasia without lower urinary tract symptoms (4) Hyperuricemia Current visit: No Status: Chronic Uric acid was elevated at 8.4% on 02/18/2016. We will recheck in a.m. (5) Azotemia Current visit: No Status: Chronic Creatinine was 0.96 on 08/13/2015. Will hold hydrochlorothiazide, give IV fluids, and monitor renal indices. Internal Medicine - H&P: HPI Chief complaint: Hypoxemia Admitted From: Home Plans for Post Hospital Care: Home History of present illness: Mr. Tracey is a 66 year old male who was sent from the [facility] to emergency room after staff reported him to have hypoxemia and altered mental status. The ER note states the EMS personnel were told by staff the patient's saturation was 85% on room air and did not improve significantly with application of oxygen. He was evaluated in emergency room and felt to have early pulmonary edema with possible right upper lobe infiltrate. He was admitted to [facility] floor for ongoing care needs. He was seen in emergency room June 25 and was felt to possibly have pneumonia. He was prescribed Levaquin 500 mg daily for 7 days. He was hospitalized last at [facility] April 2016 with a diagnosis of pneumonia. His been hospitalized several times previously at [facility] also with pneumonia. Smoking history is not known. He has MRDD/Down syndrome and is minimally communicative. Past Med Surg Social Fam HX - Past Medical History Medical history: arthritis, DVT, peripheral artery disease, seizures, thyroid disease, other Psychiatric history: no psych history - Past Surgical History Surgical History: other - Social History Smoking Status: Never smoker Smokeless Tobacco Status: No Alcohol use: none Drug use: none Internal Medicine - H&P: Meds Allopurinol [Zyloprim] 100 mg PO DAILY 11/11/14 [History] Calcium Carbonate/Vitamin D3 [Calcium 500-Vit D3 400 Tablet] 1 each PO DAILY 07/23 [History] Docusate Sodium [Dulcolax Stool Softener] 100 mg PO BID 11/11/14 [History] Folic Acid/Mv,Fe,Min [Centrum Multivitamin Tab Chew] 1 each PO DAILY 11/11/14 [ History] Galzin 50 mg PO DAILY 11/11/14 [History] Hydrochlorothiazide 12.5 mg PO DAILY 11/11/14 [History] Magnesium Oxide [Magnesium] 400 mg PO DAILY 11/11/14 [History] Niacin 500 mg PO DAILY 11/11/14 [History] Olopatadine HCl [Patanol] 5 ml OP BID 11/11/14 [History] Peg 400/Hypromellose/Glycerin [Artificial Tears Drops] 15 ml OP BID 11/11/14 [ History] Primidone [Mysoline] 50 mg PO TID 11/11/14 [History] Rivaroxaban [Xarelto] 20 mg PO DAILY 11/11/14 [History] Phenytoin [Dilantin] 100 mg PO TID 03/14/15 [History] Acetaminophen [Tylenol] 650 mg PO DAILY 09/15/15 [History] Calcium Carbonate/Vitamin D3 [Oyster Shell 500-Vit D3 200 Tb] 1 each PO [History] Levothyroxine [Synthroid] 25 mcg PO DAILY 09/15/15 [History] Finasteride [Proscar] 5 mg PO DAILY #30 tablet 04/19/16 [Rx] Lactobacillus [Culturelle] 1 each PO BID #10 cap.sprink 04/19/16 [Rx] Tamsulosin HCl [Flomax] 0.4 mg PO DAILY #30 cap.er.24h 04/19/16 [Rx] Levofloxacin [Levaquin] 500 mg PO DAILY #7 tablet 06/25/16 [Rx] Albuterol Neb [Proventil Neb] 2.5 mg IH Q4HR 07/05/16 [History] Loperamide [Imodium] 4 mg PO NOW PRN 07/05/16 [History] Nitroglycerin [Nitrostat] 0.4 mg SL 07/05/16 [History] Allergies Cinnamon Allergy (Verified 07/05/16 06:49) See Comments clove Allergy (Verified 07/05/16 06:49) See Comments Sulfa (Sulfonamide Antibiotics) Allergy (Verified 07/05/16 06:49) Hives trimethoprim Allergy (Verified 07/05/16 06:49) Hives All Systems PM: A 10-system review of systems was performed and is negative for pertinent findings except as documented above in the HPI. Review of systems: Review of systems from his April [address] [facility] hospitalization were reviewed and revised as below Gen.: His weight has decreased from 92.986 kg at the 04/16/2015 hospitalization to present weight of 84.878 kg. Cardiovascular: He has a history of DVT and varicose veins. There is no documented hypertension heart failure or other cardiovascular disease. A stress test was reportedly done in 2008 with results not known. Respiratory: As per history of present illness GI: He has chronic constipation, diverticulosis, and bowel resection 2004 not otherwise specified. There is no documented disorders with his liver gallbladder or exocrine pancreas. He had a swallowing evaluation during his hospital stay September 2014 which showed no evidence of laryngeal penetration or aspiration. There was coughing noted after swallowing thin liquid barium. He was placed on pureed diet with nectar thick liquids. : He has presumed BPH and had urinary retention during a August 2014 hospitalization. He is on Flomax and Proscar. He has been diagnosed with CKD stage III. There is no other documented kidney or bladder disorders Endocrine: He has hypothyroidism, hyperuricemia, and presumed hyperlipidemia. He does not have known diabetes Neurologic: He is on Dilantin presumably for seizures. He has not had large distribution strokes. He does have MRDD/Down syndrome as per above Hematology/oncology: He has no documented blood disorders or internal malignancy. He has had thrombocytopenia in the past that resolved. Psychiatric: He has no known anxiety, depression, or other mental health issues Musk skeletal: He has no known gout or osteoporosis. He has mild arthritis. Dermatologic. He has diagnosis of dyshidrotic eczema, onychomycosis, and chronic venous stasis pigmentation changes - Constitutional Vitals: Temp Pulse Resp BP Pulse Ox 98.3 F 100 20 90/50 95 07/05/16 09:51 07/05/16 09:51 07/05/16 09:51 07/05/16 09:51 07/05/16 11:29 Exam: General: He is a well-developed overweight male lying in bed who appears in no significant distress at present time. HEENT: Head is atraumatic and normocephalic. Eyes: His gaze is conjugate. There is no scleral icterus. Mouth: He does not open his mouth for examination. Neck: He has a large jowl. There is no tenderness on movement of his neck Heart: Regular without murmurs gallops or ectopics. Lungs: No wheezes or crackles are heard anteriorly. He is not very cooperative during examination. Abdomen: Soft and nontender. No masses or guarding noted. Extremities: He has trace to 1+ edema on the dorsum of the feet bilaterally. He has chronic venous stasis pigmentation changes of his lower legs bilaterally. Dorsalis pedis and posterior tibial pulses are 1+ over 2 bilaterally. Neurologic: Mental status: He is nonverbal. He does not cooperate well and does not not followed commands. Cranial nerves: His facial movements are minimal but appear to be symmetric. His gaze is conjugate. Motor: He moves his arms well randomly. No further formal testing is attempted. Skin: Warm and dry Internal Med - H&P Results - Labs CBC & Chem 7: 07/05/16 07:20 07/05/16 07:20 - VTE Reasons for not Prescribing Prophylaxis: Treatment not Indicated - Low risk for VTE
[2016-07-05] MEDS: Piperacillin/Tazobactam 3.375 GM in D5% in Water (Mini-Bag+) 100 ML IVPB SCH ×2 (13:55→20:43)
[2016-07-05] MEDS: Primidone 50 MG TABLET PO SCH ×2 (16:36→21:09)
[2016-07-05] MEDS: Doxycycline 100 MG in 0.9 % Sodium Chloride Mini Bag 100 ML IVPB SCH (18:35)
[2016-07-05] MEDS: Lactobacillus 1 EACH CAP.SPRINK PO SCH (20:43)
[2016-07-05] MEDS: Docusate Oral Soln 100 MG/10 ML UDC PO SCH (21:08)
[2016-07-05] MEDS: Artificial Tears SOLN 15 ML BOTTLE OP SCH (21:08)
[2016-07-05] MEDS: Phenytoin Oral Susp 100 MG/4 ML UDC PO SCH (21:13)
[2016-07-05] MEDS: (Olopatadine Hcl [Patanol] 5 ML) OP SCH (22:14)
[2016-07-06] MEDS: Doxycycline 100 MG in 0.9 % Sodium Chloride Mini Bag 100 ML IVPB SCH ×2 (04:26→17:17)
[2016-07-06] MEDS: Phenytoin Oral Susp 100 MG/4 ML UDC PO SCH ×3 (04:27→21:25)
[2016-07-06] MEDS: Piperacillin/Tazobactam 3.375 GM in D5% in Water (Mini-Bag+) 100 ML IVPB SCH ×3 (05:36→21:25)
[2016-07-06 06:51] LABS: Basophils # 0.1 K/mcL (0.0-0.2); Basophils % 0.3 %; Eosinophils # 0.1 K/mcL (0.0-0.6); Eosinophils % 0.6 %; Hematocrit 40.3 % (37.5-50.1); Hemoglobin 13.3 g/dL (12.9-16.9); Immature Granulocytes % 0.6 % (0-4); Lymphocytes # 1.1 K/mcL (0.6-4.6); Lymphocytes % 7.1 %; Mean Corpuscular Hemoglobin 32.7 pg (28.0-33.3); Mean Platelet Volume 10.6 fL (9.4-12.4); Monocytes # 0.6 K/mcL (0.0-1.3); Monocytes % 3.5 %; Platelet Count 140 K/mcL (140-400); Red Blood Count 4.07 M/mcL (4.19-5.50); Red Cell Distribution Width 15.8 % (11.5-14.5); Segmented Neutrophils % 87.9 %
[2016-07-06 07:03] LABS: Neutrophils # 14.1 K/mcL (1.6-8.9)
[2016-07-06 07:08] LABS: BUN/Creatinine Ratio 17 (6-26); Blood Urea Nitrogen 22 mg/dL (8-26); Calcium 8.4 mg/dL (8.6-10.8); Carbon Dioxide 23 mEq/L (19-29); Chloride 106 mEq/L (98-109); Glucose 91 mg/dL (70-99); Osmolality,Calculated 293 (280-300); Potassium 4.3 mEq/L (3.5-4.5); Sodium 140 mEq/L (136-145); Uric Acid 6.7 mg/dL (3.5-7.2); eGFR For African Americans > 60 (> 60); eGFR For Non-African Americans 55 (> 60)
[2016-07-06] MEDS ORDERED: (Calcium Carbonate/Vitamin D3 [Calcium 500-Vit D3 400) PO SCH (09:00)
--- NOTE | 2016-07-06 09:11 | Electrocardiograph Report ---
[address] [address] Test Date: 2016-07-05 Pat Name: Evan Tracey Department: [id number] Room: [facility] Gender: M Cutter Banana Room: [id number] : 1950 Requested By: Iesha Montalvo Order Number: [id number] Reading MD: Milton Becker MD Measurements Intervals [place] Rate: 117 P: 57 DE: 172 QRS: 36 QRSD: 98 T: 49 QT: 343 QTc: 412 Interpretive Statements SINUS TACHYCARDIA Electronically Signed On 07-06-2016 9:09:46 EDT by Milton Becker MD
[2016-07-06] MEDS: Docusate Oral Soln 100 MG/10 ML UDC PO SCH ×2 (09:31→20:12)
[2016-07-06] MEDS: Finasteride 5 MG TABLET PO SCH (09:31)
[2016-07-06] MEDS: Lactobacillus 1 EACH CAP.SPRINK PO SCH ×2 (09:31→20:11)
[2016-07-06] MEDS: Acetaminophen 325 MG TABLET PO SCH (09:31)
[2016-07-06] MEDS: Magnesium Oxide 400 MG TABLET PO SCH (09:31)
[2016-07-06] MEDS: Multivit/Ca/Min/Fe/FA 1 TAB TABLET PO SCH (09:31)
[2016-07-06] MEDS: ZINC ACETATE 50 MG PO SCH (09:32)
[2016-07-06] MEDS: Primidone 50 MG TABLET PO SCH ×3 (09:32→20:14)
[2016-07-06] MEDS: *HR* Rivaroxaban 10 MG TABLET PO SCH (09:32)
[2016-07-06] MEDS: Artificial Tears SOLN 15 ML BOTTLE OP SCH ×2 (09:32→20:12)
[2016-07-06] MEDS: Niacin (24 HR) 500 MG TAB.ER.24H PO SCH (09:32)
[2016-07-06] MEDS: (Olopatadine Hcl [Patanol] 5 ML) OP SCH ×2 (09:33→21:44)
[2016-07-06] MEDS ORDERED: Levofloxacin 750 MG/150 ML 750 MG/150 ML BAG IVPB SCH (10:00)
--- NOTE | 2016-07-06 10:20 | Internal Med Progress Note ---
Date of Encounter: 07/06/16 Time of Encounter: 10:10 - Assessment and plan (1) Pneumonia Current Visit: Yes Status: Acute Assessment and plan: July 06. Continue Zosyn, doxycycline, and lactobacillus. Qualifiers: Pneumonia type: due to unspecified organism Laterality: right Lung location: upper lobe of lung Qualified Code(s): J18.1 - Lobar pneumonia, unspecified organism (2) Hypothyroidism Current Visit: No Status: Chronic Assessment and plan: July 06. Continue Synthroid Qualifiers: Hypothyroidism type: unspecified Qualified Code(s): E03.9 - Hypothyroidism , unspecified (3) BPH (benign prostatic hyperplasia) Current Visit: No Status: Chronic Assessment and plan: July 06. Continue Proscar and Flomax Qualifiers: Prostatic enlargement morphology: unspecified morphology Lower urinary tract symptom presence: presence of symptoms unspecified Qualified Code(s): N40.0 - Benign prostatic hyperplasia without lower urinary tract symptoms (4) Hyperuricemia Current Visit: No Status: Chronic Assessment and plan: July 06. Uric acid is acceptable at 6.7. Continue allopurinol. (5) Azotemia Current Visit: No Status: Chronic Assessment and plan: July 06. Creatinine has decreased to 1.29 with estimated GFR rising to 55. Continue to withhold HCTZ and give IV fluids. Recheck labs in a.m. (6) Sore throat Current Visit: Yes Status: Acute Assessment and plan: July 06. Will order Chloraseptic spray - Subjective Interval history: July 06. He complains of sore throat. He denies abdominal pain or other problems. - Constitutional Vitals: Temp Pulse Resp BP Pulse Ox 98.4 F 82 14 92/53 93 L 07/06/16 03:45 07/06/16 03:45 07/06/16 03:45 07/06/16 03:45 07/06/16 03:45 Exam: He has lying in bed and appears in minimal distress. He points to his throat and confirms he has soreness there. His abdomen shows bowel sounds present. It is soft and nontender to palpation. Extremities show no pitting edema. I reviewed his medications and lab results. Internal Medicine: Result - Labs CBC & Chem 7: 07/06/16 06:15 07/06/16 06:15 Labs: Short CBC 07/06/16 Range/Units 06:15 WBC 16.0 H (4.3-11.1) K/mcL Hgb 13.3 D (12.9-16.9) g/dL Hct 40.3 (37.5-50.1) % Plt Count 140 (140-400) K/mcL Neutrophils # 14.1 H (1.6-8.9) K/mcL BMP 07/06/16 06:15 Sodium 140 Potassium 4.3 Chloride 106 Carbon Dioxide 23 BUN 22 Creatinine 1.29 H Glucose 91 Calcium 8.4 L - ABG Interpretation ABG results: PT/INR, D-dimer PT 12.6 Seconds (9.4-12.1) H 07/05/16 07:20 - VTE Reasons for not Prescribing Prophylaxis: Treatment not Indicated - Low risk for VTE Consult Discharge Plan - Plan Referrals: Manisha Crespo MD [Primary Care Provider] - 1 week
[2016-07-06] MEDS: Cholecalciferol (D-3) 1,000 UNIT TABLET PO SCH (11:03)
[2016-07-06] MEDS: Levothyroxine 25 MCG TABLET PO SCH (11:03)
[2016-07-06] MEDS: Chloraseptic Spray 177 ML BOTTLE MM SCH ×4 (13:10→20:13)
[2016-07-06 14:14] LABS: Adenovirus Not Detected (Not Detect); Bordetella Pertussis Not Detected (Not Detect); Chlamydophila pneumoniae Not Detected (Not Detect); Coronavirus 229E Not Detected (Not Detect); Coronavirus HKU1 Not Detected (Not Detect); Coronavirus NL63 Not Detected (Not Detect); Coronavirus OC43 Not Detected (Not Detect); Human Metapneumovirus Not Detected (Not Detect); Human Rhinovirus/Enterovirus Not Detected (Not Detect); Influenza A Subtype 2009 H1 Not Detected (Not Detect); Influenza A Untypeable Not Detected (Not Detect); Influenza B Not Detected (Not Detect); Mycoplasma pneumoniae Not Detected (Not Detect); Parainfluenza Virus 1 Not Detected (Not Detect); Parainfluenza Virus 2 Not Detected (Not Detect); Parainfluenza Virus 3 Not Detected (Not Detect); Parainfluenza Virus 4 Not Detected (Not Detect); Respiratory Syncytial Virus Not Detected (Not Detect)
[2016-07-07] MEDS: Piperacillin/Tazobactam 3.375 GM in D5% in Water (Mini-Bag+) 100 ML IVPB SCH (04:44)
[2016-07-07 05:05] LABS: Basophils # 0.1 K/mcL (0.0-0.2); Basophils % 0.6 %; Eosinophils # 0.1 K/mcL (0.0-0.6); Eosinophils % 0.9 %; Hemoglobin 13.2 g/dL (12.9-16.9); Immature Granulocytes % 0.4 % (0-4); Lymphocytes # 1.2 K/mcL (0.6-4.6); Lymphocytes % 12.6 %; Mean Corpuscular HGB Conc 31.4 g/dL (31.6-35.5); Mean Corpuscular Hemoglobin 32.6 pg (28.0-33.3); Mean Corpuscular Volume 103.7 fL (83.0-100.0); Mean Platelet Volume 10.5 fL (9.4-12.4); Monocytes # 0.3 K/mcL (0.0-1.3); Monocytes % 3.5 %; Neutrophils # 7.9 K/mcL (1.6-8.9); Platelet Count 108 K/mcL (140-400); Red Blood Count 4.05 M/mcL (4.19-5.50); Red Cell Distribution Width 15.9 % (11.5-14.5)
[2016-07-07 05:20] LABS: Calcium 8.6 mg/dL (8.6-10.8); Magnesium 1.8 mg/dL (1.6-2.6); Potassium 4.3 mEq/L (3.5-4.5)
[2016-07-07 05:50] LABS: Platelet Estimate Normal (Normal)
[2016-07-07 06:29] VITALS: BP 128/81
[2016-07-07] MEDS: Levothyroxine 25 MCG TABLET PO SCH ×2 (06:50→08:20)
[2016-07-07] MEDS: Phenytoin Oral Susp 100 MG/4 ML UDC PO SCH (07:00)
[2016-07-07] MEDS ORDERED: Doxycycline 100 MG in 0.9 % Sodium Chloride Mini Bag 100 ML IVPB ONE (08:15)
[2016-07-07] MEDS: *HR* Rivaroxaban 10 MG TABLET PO SCH (08:20)
[2016-07-07] MEDS: Magnesium Oxide 400 MG TABLET PO SCH (08:20)
[2016-07-07] MEDS: Multivit/Ca/Min/Fe/FA 1 TAB TABLET PO SCH (08:21)
[2016-07-07] MEDS: Lactobacillus 1 EACH CAP.SPRINK PO SCH (08:21)
[2016-07-07] MEDS: Finasteride 5 MG TABLET PO SCH (08:21)
[2016-07-07] MEDS: ZINC ACETATE 50 MG PO SCH (08:21)
[2016-07-07] MEDS: (Olopatadine Hcl [Patanol] 5 ML) OP SCH (08:21)
[2016-07-07] MEDS: Acetaminophen 325 MG TABLET PO SCH (08:21)
[2016-07-07] MEDS: Docusate Oral Soln 100 MG/10 ML UDC PO SCH (08:21)
[2016-07-07] MEDS: Niacin (24 HR) 500 MG TAB.ER.24H PO SCH (08:21)
[2016-07-07] MEDS: Cholecalciferol (D-3) 1,000 UNIT TABLET PO SCH (08:22)
[2016-07-07] MEDS: Primidone 50 MG TABLET PO SCH (08:22)
[2016-07-07] MEDS: Chloraseptic Spray 177 ML BOTTLE MM SCH (08:23)
[2016-07-07] MEDS: Artificial Tears SOLN 15 ML BOTTLE OP SCH (08:23)
--- NOTE | 2016-07-07 10:17 | Discharge Summary ---
Date of Encounter: 07/07/16 Time of Encounter: 10:10 - Discharge Diagnosis (1) Pneumonia Priority: Primary Status: Acute Qualifiers: Pneumonia type: due to unspecified organism Laterality: right Lung location: upper lobe of lung Qualified Code(s): J18.1 - Lobar pneumonia, unspecified organism (2) Hypothyroidism Priority: Secondary Status: Chronic Qualifiers: Hypothyroidism type: unspecified Qualified Code(s): E03.9 - Hypothyroidism , unspecified (3) BPH (benign prostatic hyperplasia) Priority: Secondary Status: Chronic Qualifiers: Prostatic enlargement morphology: unspecified morphology Lower urinary tract symptom presence: presence of symptoms unspecified Qualified Code(s): N40.0 - Benign prostatic hyperplasia without lower urinary tract symptoms (4) Sore throat Priority: Secondary Status: Acute (5) CKD (chronic kidney disease) stage 3, GFR 30-59 ml/min Priority: Secondary Status: Chronic (6) Hyperuricemia Priority: Secondary Status: Chronic - Discharge Medications Prescriptions: Amoxicillin/Clavulanate [Augmentin] 875 mg PO BIDWM #10 tablet Chloraseptic Toone [Chloraseptic] 2 spray MM QID #1 unit Doxycycline 100 mg PO BID #10 capsule Lactobacillus [Culturelle] 1 each PO BID #10 cap.sprink Home Medications: Allopurinol [Zyloprim] 100 mg PO DAILY 11/11/14 [History] Calcium Carbonate/Vitamin D3 [Calcium 500-Vit D3 400 Tablet] 1 each PO DAILY 07/23 [History] Docusate Sodium [Dulcolax Stool Softener] 100 mg PO BID 11/11/14 [History] Folic Acid/Mv,Fe,Min [Centrum Multivitamin Tab Chew] 1 each PO DAILY 11/11/14 [ History] Galzin 50 mg PO DAILY 11/11/14 [History] Hydrochlorothiazide 12.5 mg PO DAILY 11/11/14 [History] Magnesium Oxide [Magnesium] 400 mg PO DAILY 11/11/14 [History] Niacin 500 mg PO DAILY 11/11/14 [History] Olopatadine HCl [Patanol] 5 ml OP BID 11/11/14 [History] Peg 400/Hypromellose/Glycerin [Artificial Tears Drops] 15 ml OP BID 11/11/14 [ History] Primidone [Mysoline] 50 mg PO TID 11/11/14 [History] Rivaroxaban [Xarelto] 20 mg PO DAILY 11/11/14 [History] Phenytoin [Dilantin] 100 mg PO TID 03/14/15 [History] Acetaminophen [Tylenol] 650 mg PO DAILY 09/15/15 [History] Calcium Carbonate/Vitamin D3 [Oyster Shell 500-Vit D3 200 Tb] 1 each PO [History] Levothyroxine [Synthroid] 25 mcg PO DAILY 09/15/15 [History] Finasteride [Proscar] 5 mg PO DAILY #30 tablet 04/19/16 [Rx] Tamsulosin HCl [Flomax] 0.4 mg PO DAILY #30 cap.er.24h 04/19/16 [Rx] Albuterol Neb [Proventil Neb] 2.5 mg IH Q4HR 07/05/16 [History] Loperamide [Imodium] 4 mg PO NOW PRN 07/05/16 [History] Nitroglycerin [Nitrostat] 0.4 mg SL 07/05/16 [History] Amoxicillin/Clavulanate [Augmentin] 875 mg PO BIDWM #10 tablet 07/07/16 [Rx] Chloraseptic Toone [Chloraseptic] 2 spray MM QID #1 unit 07/07/16 [Rx] Doxycycline 100 mg PO BID #10 capsule 07/07/16 [Rx] Lactobacillus [Culturelle] 1 each PO BID #10 cap.sprink 07/07/16 [Rx] Allergies/Adverse Reactions: Allergies Cinnamon Allergy (Verified 07/05/16 06:49) See Comments clove Allergy (Verified 07/05/16 06:49) See Comments nut - unspecified Allergy (Verified 07/07/16 07:23) Anaphylaxis Sulfa (Sulfonamide Antibiotics) Allergy (Verified 07/05/16 06:49) Hives trimethoprim Allergy (Verified 07/05/16 06:49) Hives Date of admission: 07/05/16 19:00 Primary care physician: Manisha Crespo - Patient Status Disposition: Home, Self-Care Condition: Fair Overall status at discharge: patient is progressing back to baseline - Discharge Instructions Follow Up With: Manisha Crespo MD [Primary Care Provider] - 1 week - Diet and Activity Activity: resume usual activities as tolerated Diet: advance to your usual diet Hospital course: Mr. Tracey is a 66 year old male who was sent from the [facility] to emergency room after staff reported him to have hypoxemia and altered mental status. The ER note states the EMS personnel were told by staff the patient's saturation was 85% on room air and did not improve significantly with application of oxygen. He was evaluated in emergency room and felt to have early pulmonary edema with possible right upper lobe infiltrate. He was admitted to [facility] floor for ongoing care needs. Initial orders were written with emergency room physician. I saw him on July 05 and performed the history and physical. He was initially given Levaquin in the emergency room but I changed him to IV Zosyn and doxycycline. Lactobacillus was added. Respiratory viral panel returned negative on nasal swab specimen. He had clinical improvement with WBC normalizing to 9.6 the day of discharge with 82% segs. He will continue with Augmentin and doxycycline with lactobacillus for 5 days after discharge. Uric acid level returned satisfactory at 6.7. He will continue present dose allopurinol. Azotemia changed minimally during hospitalization. He has known chronic kidney disease stage III. Room air oximetry at rest showed saturations of 93% when I saw him the morning of July 07. I felt he was stable for discharge back to the [facility]. He will follow Dr. Crespo there. - Time Spent with Patient Total time spent providing and/or coordinating discharge services: - Constitutional Vitals: Temp Pulse Resp BP Pulse Ox 98.1 F 72 16 128/81 100 07/07/16 08:25 07/07/16 08:25 07/07/16 08:25 07/07/16 06:19 07/07/16 06:19 - VTE Reasons for not Prescribing Prophylaxis: Treatment not Indicated - Low risk for VTE Documentation of Mechanical Device: Graduated compression elastic hosiery
[2016-07-07] MEDS ORDERED: Doxycycline 100 MG in 0.9 % Sodium Chloride Mini Bag 100 ML IVPB SCH (16:00)
== END 2016-07-07 12:05 | disposition home or self-care (01) | DRG 194 ==
LOC: EMEROOPIK 06:48 → INPPIK 06:48
PROVIDERS: ADMIT Internal Medicine; ATTEND Internal Medicine

== ENCOUNTER 2016-11-06 07:26 | Inpatient (IN) ==
--- NOTE | 2016-11-06 08:11 | Emergency Department Note ---
Disposition Clinical Impression: Cellulitis Qualifiers: Site of cellulitis: extremity Site of cellulitis of extremity: lower extremity Laterality: right Qualified Code(s): L03.115 - Cellulitis of right lower limb Disposition: Admitted As Inpatient Condition: Good Referrals: Manisha Crespo MD [Primary Care Provider] - Forms: ED Satisfaction Letter Time of Disposition: 09:12 Fever HPI - General Chief Complaint: ED Fever Stated Complaint: fever Time Seen by Provider: 11/06/16 07:45 Source: EMS Mode of arrival: EMS Limitations: altered mental status, physical limitation, age Nursing Notes Reviewed: Yes Vital Signs Reviewed: Yes - History of Present Illness HPI Narrative: 66-year-old male elderly individual from [facility] had recently been started on antibiotics for a foot infection today had a fever of 101 was brought to the emergency room they noted that normally he is alert and speech impaired but they states that he is more drowsy today he was sweaty when he had the fever apparently broken route according to EMS he was 101+ at the facility was 99 6 upon arrival here they denied any history of cough or congestion they deny that he has had any apnea or cyanosis patient's condition unable to prior hematocrit adequate history based on underlying developmentally disabled ability Pt Subjective Complaint: fever, malaise, weakness Onset (ago): day(s) Maximum Temperature Reported: 101 F Time temperature last taken: 07:00 Temperature Source: oral Context: recent antibiotic use Associated symptoms: Reports: altered mental status. Denies: chills, rigors, myalgias, headache, rhinorrhea, nasal congestion, sore throat, stiff neck, cough , chest pain, dyspnea, abdominal pain, nausea, vomiting, diarrhea, dysuria, rash , night sweats, weight loss - Related Data Home Medications Medication Instructions Recorded Confirmed Allopurinol [Zyloprim] 100 mg PO DAILY 11/11/14 11/06/16 Docusate Sodium [Dulcolax Stool 100 mg PO BID 11/11/14 11/06/16 Softener] Folic Acid/Mv,Fe,Min [Centrum 1 each PO DAILY 11/11/14 11/06/16 Multivitamin Tab Chew] Galzin 50 mg PO DAILY 11/11/14 11/06/16 Magnesium Oxide [Magnesium] 400 mg PO DAILY 11/11/14 11/06/16 Olopatadine HCl [Patanol] 5 ml OP BID 11/11/14 11/06/16 Peg 400/Hypromellose/Glycerin 15 ml OP BID 11/11/14 11/06/16 [Artificial Tears Drops] Primidone [Mysoline] 50 mg PO TID 11/11/14 11/06/16 Rivaroxaban [Xarelto] 20 mg PO DAILY 11/11/14 11/06/16 Phenytoin [Dilantin] 100 mg PO TID 03/14/15 11/06/16 Acetaminophen [Tylenol] 650 mg PO DAILY 09/15/15 11/06/16 Calcium Carbonate/Vitamin D3 1 each PO QAM 09/15/15 11/06/16 [Oyster Shell 500-Vit D3 200 Tb] Levothyroxine [Synthroid] 150 mcg PO DAILY 09/15/15 11/06/16 Albuterol Neb [Proventil Neb] 2.5 mg IH Q4HR 07/05/16 11/06/16 Loperamide [Imodium] 4 mg PO NOW PRN 07/05/16 11/06/16 Nitroglycerin [Nitrostat] 0.4 mg SL PRN PRN 07/05/16 11/06/16 Acetaminophen [Tylenol] 650 mg PO Q4HR PRN 10/29/16 11/06/16 Atorvastatin [Lipitor] 20 mg PO HS 10/29/16 11/06/16 Cephalexin [Keflex] 500 mg PO QID 10/29/16 11/06/16 Ciprofloxacin HCl [Cipro] 500 mg PO BID 10/29/16 11/06/16 Magnesium Hydroxide [Milk of 30 ml PO PRN PRN 10/29/16 11/06/16 Magnesia] Niacin [Niaspan] 500 mg PO HS 10/29/16 11/06/16 Polyethylene Glycol 3350 [MiraLAX] 17 gm PO BID 10/29/16 11/06/16 risperiDONE [Risperidone] 0.5 mg PO BID 10/29/16 11/06/16 Previous Rx's Medication Instructions Recorded Finasteride [Proscar] 5 mg PO DAILY #30 tablet 04/19/16 Tamsulosin HCl [Flomax] 0.4 mg PO DAILY #30 cap.er.24h 04/19/16 Allergies Allergy/AdvReac Type Severity Reaction Status Date / Time cinnamon [Cinnamon] Allergy See Verified 11/06/16 07:27 Comments clove Allergy See Verified 11/06/16 07:27 Comments nut - unspecified Allergy Anaphylaxis Verified 11/06/16 07:27 Sulfa (Sulfonamide Allergy Hives Verified 11/06/16 07:27 Antibiotics) trimethoprim Allergy Hives Verified 11/06/16 07:27 fragrances Allergy See Uncoded 11/06/16 07:51 Comments Review of Systems: As Per HPI (from [facility] report) Limitations: ROS unobtainable due to patients medical condition (DD) Fever PMH - Past Medical History Medical history: Reports: arthritis, DVT, peripheral artery disease, seizures, thyroid disease, other Surgical history: Reports: other Psychiatric history: Reports: no psych history - Social History Smoking Status: Never smoker Alcohol use: Reports: none Drug use: Reports: none Physical Exam - General Limitations: other General appearance: alert, in no apparent distress, lethargic, obese - Head Head exam: atraumatic, normocephalic, normal inspection - Eye Eye exam: Present: normal appearance, PERRL, EOMI - ENT ENT exam: normal exam, normal oropharynx, mucous membranes moist, TM's normal bilaterally, normal external ear exam - Neck Neck exam: Present: normal inspection, full ROM, trachea midline - Chest Chest inspection: Present: normal inspection, symmetric chest wall rise - Respiratory Respiratory exam: Present: normal lung sounds bilaterally, other (almost like a rub sound and diminshed breath sounds) - Cardiovascular Cardiovascular exam: Present: regular rate, normal rhythm, normal heart sounds - Abdominal Exam Abdominal exam: Present: soft, Non-Tender, normal bowel sounds, other (obsese distention). Absent: mass, pulsatile mass - Expanded Upper Extremity Exam Shoulder exam: Present: normal inspection, full ROM Arm exam: Present: normal inspection, full ROM Elbow exam: Present: normal inspection, full ROM Forearm/Wrist exam: Present: normal inspection, full ROM Hand exam: Present: normal inspection, full ROM Vascular exam: Normal: capillary refill, radial pulse - Expanded Lower Extremity Exam Hip/Pelvis exam: Present: normal inspection, full ROM Upper leg exam: Present: normal inspection, full ROM Knee exam: Present: normal inspection, full ROM Lower leg exam: Present: normal inspection, full ROM Ankle exam: Present: normal inspection, full ROM Foot/toe exam: Present: normal inspection, full ROM Neurovascular/Tendon exam: Present: normal capillary refill, normal fine/light touch. Absent: motor deficit, sensory deficit, tendon deficit Gait: not tested/not observed - Back Exam Back exam: Present: normal inspection, full ROM. Absent: muscle spasm - Neurological Exam Neurological exam: Present: alert, CN II-XII intact - Psychiatric Psychiatric exam: Present: normal affect, normal mood - Skin Skin exam: Present: warm, dry, intact, normal color Course Course Narrative: Patient was seen and examined patient turned over services Dr. Braga at 0800 hrs. with dressing still being removed from foot at this time labs and blood cultures ordered Dr. Braga: Current blood pressure 131/49, SPO2 96%, heart rate 80, patient alert and resting comfortably. Cultures been obtained, lactates normal. IV Zosyn has been ordered. Discussed the case with Dr. Rios at 910, patient is been admitted for ongoing treatment of his right lower extremity cellulitis with pneumonia. Vital Signs Temperature 99.5 F 11/06/16 07:27 Pulse Rate 95 11/06/16 07:27 Respiratory Rate 18 11/06/16 07:27 Blood Pressure 98/53 11/06/16 07:27 O2 Sat by Pulse Oximetry 93 11/06/16 07:27 Temperature 99.5 F 11/06/16 07:43 Pulse Rate 81 11/06/16 08:34 Respiratory Rate 19 11/06/16 08:34 Blood Pressure 96/52 11/06/16 08:34 O2 Sat by Pulse Oximetry 97 11/06/16 08:34 Oxygen Delivery Oxygen Delivery Nasal Cannula Fever - Differential Diagnosis Likely: cellulitis, fever of occult origin, community acquired pneumonia, viral infection, sepsis - Medical Records Medical records reviewed: Yes I reviewed the patient's medical records. - Lab Data Lab results reviewed: Yes I reviewed the patient's lab results. Result diagrams: 11/06/16 08:25 11/06/16 08:25 Lab Results 11/06/16 11/06/16 11/06/16 Range/Units 08:25 08:25 08:25 WBC 21.4 H (4.3-11.1) K/mcL RBC 4.21 (4.19-5.50) M/mcL Hgb 14.0 (12.9-16.9) g/dL Hct 40.5 (37.5-50.1) % MCV 96.2 (83.0-100.0) fL MCH 33.3 (28.0-33.3) pg MCHC 34.6 (31.6-35.5) g/dL RDW 15.9 H (11.5-14.5) % Plt Count 208 (140-400) K/mcL MPV 10.0 (9.4-12.4) fL Immature Gran % 0.6 (0-4) % Seg Neutrophils % 87.6 % Lymphocytes % 6.0 % Monocytes % 5.4 % Eosinophils % 0.1 % Basophils % 0.3 % Neutrophils # 18.8 H (1.6-8.9) K/mcL Lymphocytes # 1.3 (0.6-4.6) K/mcL Monocytes # 1.2 (0.0-1.3) K/mcL Eosinophils # 0.0 (0.0-0.6) K/mcL Basophils # 0.1 (0.0-0.2) K/mcL PT (9.4-12.1) Seconds INR APTT 40.6 H (26.0-36.0) Seconds VBG Lactic Acid 1.4 (0.5-2.2) mmol/L Sodium (136-145) mEq/L Potassium (3.5-4.5) mEq/L Chloride (98-109) mEq/L Carbon Dioxide (19-29) mEq/L BUN (8-26) mg/dL Creatinine (0.72-1.25) mg/dL Est GFR ( Amer) (> 60) Est GFR (Non-Af Amer) (> 60) BUN/Creatinine Ratio (6-26) Glucose (70-99) mg/dL Calculated Osmolality (280-300) Calcium (8.6-10.8) mg/dL Total Bilirubin (0.2-1.2) mg/dL AST (5-34) Units/L ALT (0-55) Units/L Alkaline Phosphatase (38-126) Units/L Troponin I (0-0.03) ng/mL Serum Total Protein (6.0-8.3) g/dL Albumin (3.5-5.0) g/dL Globulin (2.4-3.5) g/dL Albumin/Globulin Ratio (1.1-2.2) Urine Color (Yellow) Urine Clarity (Clear) Urine pH (5.0-8.0) pH Units Ur Specific [place] (1.010-1.025) Urine Protein (Neg-Trace) mg/dL Urine Glucose (UA) (Normal) mg/dL Urine Ketones (Negative) mg/dL Urine Blood (Negative) Urine Nitrite (Negative) Urine Bilirubin (Negative) Urine Urobilinogen (Normal) mg/dL Ur Leukocyte Esterase (Negative) Urine Microscopic RBC (0-3) per hpf Urine Microscopic WBC (0-3) per hpf Ur Squamous Epith Cells (None-Few) per lpf Urine Bacteria (None-Few) per hpf Hyaline Casts (None-Few) per lpf Urine Mucus (Few) Ur Culture Indicated? (NO) 11/06/16 11/06/16 11/06/16 Range/Units 08:25 08:25 08:25 WBC (4.3-11.1) K/mcL RBC (4.19-5.50) M/mcL Hgb (12.9-16.9) g/dL Hct (37.5-50.1) % MCV (83.0-100.0) fL MCH (28.0-33.3) pg MCHC (31.6-35.5) g/dL RDW (11.5-14.5) % Plt Count (140-400) K/mcL MPV (9.4-12.4) fL Immature Gran % (0-4) % Seg Neutrophils % % Lymphocytes % % Monocytes % % Eosinophils % % Basophils % % Neutrophils # (1.6-8.9) K/mcL Lymphocytes # (0.6-4.6) K/mcL Monocytes # (0.0-1.3) K/mcL Eosinophils # (0.0-0.6) K/mcL Basophils # (0.0-0.2) K/mcL PT 14.6 H (9.4-12.1) Seconds INR 1.3 APTT (26.0-36.0) Seconds VBG Lactic Acid (0.5-2.2) mmol/L Sodium 135 L (136-145) mEq/L Potassium 4.7 H (3.5-4.5) mEq/L Chloride 98 (98-109) mEq/L Carbon Dioxide 25 (19-29) mEq/L BUN 23 (8-26) mg/dL Creatinine 1.56 H (0.72-1.25) mg/dL Est GFR ( Amer) 54 L (> 60) Est GFR (Non-Af Amer) 44 L (> 60) BUN/Creatinine Ratio 15 (6-26) Glucose 117 H (70-99) mg/dL Calculated Osmolality 285 (280-300) Calcium 9.2 (8.6-10.8) mg/dL Total Bilirubin 0.3 (0.2-1.2) mg/dL AST 32 (5-34) Units/L ALT 29 (0-55) Units/L Alkaline Phosphatase 102 (38-126) Units/L Troponin I 0.02 (0-0.03) ng/mL Serum Total Protein 6.7 (6.0-8.3) g/dL Albumin 2.7 L (3.5-5.0) g/dL Globulin 4.0 H (2.4-3.5) g/dL Albumin/Globulin Ratio 0.7 L (1.1-2.2) Urine Color (Yellow) Urine Clarity (Clear) Urine pH (5.0-8.0) pH Units Ur Specific [place] (1.010-1.025) Urine Protein (Neg-Trace) mg/dL Urine Glucose (UA) (Normal) mg/dL Urine Ketones (Negative) mg/dL Urine Blood (Negative) Urine Nitrite (Negative) Urine Bilirubin (Negative) Urine Urobilinogen (Normal) mg/dL Ur Leukocyte Esterase (Negative) Urine Microscopic RBC (0-3) per hpf Urine Microscopic WBC (0-3) per hpf Ur Squamous Epith Cells (None-Few) per lpf Urine Bacteria (None-Few) per hpf Hyaline Casts (None-Few) per lpf Urine Mucus (Few) Ur Culture Indicated? (NO) 11/06/16 Range/Units 08:50 WBC (4.3-11.1) K/mcL RBC (4.19-5.50) M/mcL Hgb (12.9-16.9) g/dL Hct (37.5-50.1) % MCV (83.0-100.0) fL MCH (28.0-33.3) pg MCHC (31.6-35.5) g/dL RDW (11.5-14.5) % Plt Count (140-400) K/mcL MPV (9.4-12.4) fL Immature Gran % (0-4) % Seg Neutrophils % % Lymphocytes % % Monocytes % % Eosinophils % % Basophils % % Neutrophils # (1.6-8.9) K/mcL Lymphocytes # (0.6-4.6) K/mcL Monocytes # (0.0-1.3) K/mcL Eosinophils # (0.0-0.6) K/mcL Basophils # (0.0-0.2) K/mcL PT (9.4-12.1) Seconds INR APTT (26.0-36.0) Seconds VBG Lactic Acid (0.5-2.2) mmol/L Sodium (136-145) mEq/L Potassium (3.5-4.5) mEq/L Chloride (98-109) mEq/L Carbon Dioxide (19-29) mEq/L BUN (8-26) mg/dL Creatinine (0.72-1.25) mg/dL Est GFR ( Amer) (> 60) Est GFR (Non-Af Amer) (> 60) BUN/Creatinine Ratio (6-26) Glucose (70-99) mg/dL Calculated Osmolality (280-300) Calcium (8.6-10.8) mg/dL Total Bilirubin (0.2-1.2) mg/dL AST (5-34) Units/L ALT (0-55) Units/L Alkaline Phosphatase (38-126) Units/L Troponin I (0-0.03) ng/mL Serum Total Protein (6.0-8.3) g/dL Albumin (3.5-5.0) g/dL Globulin (2.4-3.5) g/dL Albumin/Globulin Ratio (1.1-2.2) Urine Color Dark Yellow (Yellow) Urine Clarity Clear (Clear) Urine pH 5.5 (5.0-8.0) pH Units Ur Specific [place] 1.025 (1.010-1.025) Urine Protein 30 H (Neg-Trace) mg/dL Urine Glucose (UA) Normal (Normal) mg/dL Urine Ketones 15 H (Negative) mg/dL Urine Blood Negative (Negative) Urine Nitrite Negative (Negative) Urine Bilirubin Small H (Negative) Urine Urobilinogen Normal (Normal) mg/dL Ur Leukocyte Esterase Negative (Negative) Urine Microscopic RBC 0-3 (0-3) per hpf Urine Microscopic WBC 3-5 H (0-3) per hpf Ur Squamous Epith Cells Few (None-Few) per lpf Urine Bacteria Few (None-Few) per hpf Hyaline Casts Moderate H (None-Few) per lpf Urine Mucus Few (Few) Ur Culture Indicated? NO (NO) ITS Impressions Chest X-Ray 11/06/16 07:59 IMPRESSION: Mild patchy opacification within the lungs bilaterally. D/ / Ab Mathias MD / Ab Mathias MD Interpreting Provider: Ab Mathias MD - Radiology Data Radiology results reviewed: Yes I reviewed the patient's radiology results. - EKG Data EKG attestation: Yes I reviewed and interpreted this EKG. EKG shows normal: sinus rhythm (Normal sinus rhythm with a rate of 83. PACs. Nonspecific changes without evidence of acute ST segment or T-wave changes) Critical Care Time Critical Care Time: No S.B.A.R. - S.B.A.RMavis Situation: Demographics Background: Presenting Complaint, Relevant PMH, Meds, & Allergies Assessment: Vital Signs, Course and respsone to treatment, Exam Concerns, Patient/Family Expectation, Pertinant Lab Results, Outstanding Labs Recommendation: Barrier(s) to disposition, Recommendation based on pending studies, treatments, or consults S.B.A.RMavis Report Given to: Dr Maria Luz Bentley Repor Time: 08:00
[2016-11-06] MEDS ORDERED: Piperacillin/Tazobactam 4.5 GM in D5% in Water (Mini-Bag+) 100 ML IVPB ONE (08:36)
[2016-11-06 08:44] LABS: Basophils # 0.1 K/mcL (0.0-0.2); Basophils % 0.3 %; Eosinophils % 0.1 %; Hematocrit 40.5 % (37.5-50.1); Immature Granulocytes % 0.6 % (0-4); Lymphocytes # 1.3 K/mcL (0.6-4.6); Mean Corpuscular HGB Conc 34.6 g/dL (31.6-35.5); Mean Corpuscular Hemoglobin 33.3 pg (28.0-33.3); Mean Corpuscular Volume 96.2 fL (83.0-100.0); Monocytes # 1.2 K/mcL (0.0-1.3); Monocytes % 5.4 %; Platelet Count 208 K/mcL (140-400); Red Blood Count 4.21 M/mcL (4.19-5.50); Red Cell Distribution Width 15.9 % (11.5-14.5); Segmented Neutrophils % 87.6 %
[2016-11-06 08:46] LABS: Neutrophils # 18.8 K/mcL (1.6-8.9)
[2016-11-06 08:50] LABS: INR 1.3; Prothrombin Time 14.6 Seconds (9.4-12.1)
[2016-11-06 08:58] LABS: Bilirubin,Urine Small (Negative); Blood,Urine Negative (Negative); Clarity,Urine Clear (Clear); Color,Urine Dark Yellow (Yellow); Glucose,Urine (UA) Normal (Normal); Ketones,Urine 15 mg/dL (Negative); Leukocyte Esterase,Urine Negative (Negative); Nitrite,Urine Negative (Negative); PH,Urine 5.5 pH Units (5.0-8.0); Protein,Urine 30 mg/dL (Neg-Trace); Specific Gravity,Urine 1.025 (1.010-1.025); Urobilinogen,Urine Normal (Normal)
[2016-11-06 09:02] LABS: Albumin 2.7 g/dL (3.5-5.0); Albumin/Globulin Ratio 0.7 (1.1-2.2); Bilirubin,Total 0.3 mg/dL (0.2-1.2); Calcium 9.2 mg/dL (8.6-10.8); Potassium 4.7 mEq/L (3.5-4.5); Total Protein 6.7 g/dL (6.0-8.3)
[2016-11-06 09:06] LABS: Hyaline Casts,Urine Moderate per lpf (None-Few); Squamous Epithelial Cell,Urine Few per lpf (None-Few)
[2016-11-06 09:07] LABS: Bacteria,Urine Few per hpf (None-Few); Mucus,Urine Few (Few); RBC,Urine 0-3 per hpf (0-3)
[2016-11-06] MEDS ORDERED: Naloxone 0.4 MG/ML INJ IVP PRN (09:14)
[2016-11-06] MEDS ORDERED: Acetaminophen 325 MG TABLET PO PRN (09:17)
[2016-11-06 09:21] LABS: Thyroid Stimulating Hormone 17.488 mcIU/mL (0.350-4.840)
[2016-11-06] MEDS: 0.9 % Sodium Chloride 1,000 ML IVC SCH (09:23)
[2016-11-06] MEDS: Finasteride 5 MG TABLET PO SCH ×2 (11:32→14:33)
[2016-11-06] MEDS: Primidone 50 MG TABLET PO SCH ×4 (11:32→22:29)
[2016-11-06] MEDS: risperiDONE 0.25 MG TABLET PO SCH ×3 (11:33→22:29)
--- NOTE | 2016-11-06 19:05 | Electrocardiograph Report ---
[address] [address] Test Date: 2016-11-06 Pat Name: Evan Tracey Department: [id number] Room: [facility] Gender: M [employer]: [place] : 1950 Requested By: Shi Lopez Order Number: [id number] Reading MD: Milton Becker MD Measurements Intervals Solo Rate: 83 P: 50 WA: 173 QRS: 29 QRSD: 85 T: 42 QT: 341 QTc: 381 Interpretive Statements SINUS RHYTHM WITH OCCASIONAL ECTOPIC PREMATURE COMPLEXES LOW QRS VOLTAGE IN PRECORDIAL LEADS Electronically Signed On 11-06-2016 19:03:33 EDT by Milton Becker MD
[2016-11-06] MEDS: Niacin (24 HR) 500 MG TAB.ER.24H PO SCH (22:31)
[2016-11-07] MEDS: 0.9 % Sodium Chloride 1,000 ML IVC SCH (02:05)
[2016-11-07] MEDS: Albuterol 2.5 MG/3 ML NEBULIZER IH PRN ×2 (06:28→13:37)
--- NOTE | 2016-11-07 10:12 | Internal Med History&Physical ---
Date of Encounter: 11/07/16 Time of Encounter: 09:55 Assessment and Plan (1) Cellulitis Current visit: Yes Status: Acute He will be started on IV Rocephin and doxycycline. Lactobacillus will also be given. Qualifiers: Site of cellulitis: extremity Site of cellulitis of extremity: lower extremity Laterality: right Qualified Code(s): L03.115 - Cellulitis of right lower limb (2) Hyperuricemia Current visit: No Status: Chronic Continue allopurinol. Uric acid level was 6.7 on 07/06/2016. (3) Pneumonia Current visit: No Status: Acute We will start on Rocephin and doxycycline with lactobacillus. Qualifiers: Pneumonia type: due to unspecified organism Laterality: right Lung location: upper lobe of lung Qualified Code(s): J18.1 - Lobar pneumonia, unspecified organism (4) CKD (chronic kidney disease) stage 3, GFR 30-59 ml/min Current visit: No Status: Chronic Will monitor renal indices periodically. Creatinine was 0.August. (5) Prostate enlargement Current visit: Yes Status: Chronic Will increase Flomax and continue Proscar. Internal Medicine - H&P: HPI Chief complaint: Fever and leukocytosis Admitted From: Home Plans for Post Hospital Care: Home History of present illness: Mr. Tracey is a 66 year old male who was brought to the emergency room from a local prison after he was found to have fever of 101 F. He had been recently started on Keflex and Cipro for foot infection. He was evaluated in emergency room and had evidence of pneumonia and possible right foot cellulitis. He was admitted to [facility] floor for ongoing care needs. He has MRDD and could not give any history. He was hospitalized last at [facility] June 2016 with a diagnosis of pneumonia. Past Med Surg Social Fam HX - Past Medical History Medical history: arthritis, DVT, peripheral artery disease, seizures, thyroid disease, other Psychiatric history: no psych history - Past Surgical History Surgical History: other - Social History Smoking Status: Never smoker Smokeless Tobacco Status: No Alcohol use: none Drug use: none Internal Medicine - H&P: Meds Allopurinol [Zyloprim] 100 mg PO DAILY 11/11/14 [History] Docusate Sodium [Dulcolax Stool Softener] 100 mg PO BID 11/11/14 [History] Folic Acid/Mv,Fe,Min [Centrum Multivitamin Tab Chew] 1 each PO DAILY 11/11/14 [ History] Galzin 50 mg PO DAILY 11/11/14 [History] Magnesium Oxide [Magnesium] 400 mg PO DAILY 11/11/14 [History] Olopatadine HCl [Patanol] 5 ml OP BID 11/11/14 [History] Peg 400/Hypromellose/Glycerin [Artificial Tears Drops] 15 ml OP BID 11/11/14 [ History] Primidone [Mysoline] 50 mg PO TID 11/11/14 [History] Rivaroxaban [Xarelto] 20 mg PO DAILY 11/11/14 [History] Phenytoin [Dilantin] 100 mg PO TID 03/14/15 [History] Acetaminophen [Tylenol] 650 mg PO DAILY 09/15/15 [History] Calcium Carbonate/Vitamin D3 [Oyster Shell 500-Vit D3 200 Tb] 1 each PO QAM 10/23 [History] Levothyroxine [Synthroid] 150 mcg PO DAILY 09/15/15 [History] Finasteride [Proscar] 5 mg PO DAILY #30 tablet 04/19/16 [Rx] Tamsulosin HCl [Flomax] 0.4 mg PO DAILY #30 cap.er.24h 04/19/16 [Rx] Albuterol Neb [Proventil Neb] 2.5 mg IH Q4HR 07/05/16 [History] Loperamide [Imodium] 4 mg PO NOW PRN 07/05/16 [History] Nitroglycerin [Nitrostat] 0.4 mg SL PRN PRN 07/05/16 [History] Acetaminophen [Tylenol] 650 mg PO Q4HR PRN 10/29/16 [History] Atorvastatin [Lipitor] 20 mg PO HS 10/29/16 [History] Cephalexin [Keflex] 500 mg PO QID 10/29/16 [History] Ciprofloxacin HCl [Cipro] 500 mg PO BID 10/29/16 [History] Magnesium Hydroxide [Milk of Magnesia] 30 ml PO PRN PRN 10/29/16 [History] Niacin [Niaspan] 500 mg PO HS 10/29/16 [History] Polyethylene Glycol 3350 [MiraLAX] 17 gm PO BID 10/29/16 [History] risperiDONE [Risperidone] 0.5 mg PO BID 10/29/16 [History] Allergies cinnamon [Cinnamon] Allergy (Verified 11/06/16 07:27) See Comments clove Allergy (Verified 11/06/16 07:27) See Comments nut - unspecified Allergy (Verified 11/06/16 07:27) Anaphylaxis Sulfa (Sulfonamide Antibiotics) Allergy (Verified 11/06/16 07:27) Hives trimethoprim Allergy (Verified 11/06/16 07:27) Hives fragrances Allergy (Uncoded 11/06/16 07:51) See Comments unknwon All Systems PM: A 10-system review of systems was performed and is negative for pertinent findings except as documented above in the HPI. Review of systems: Review of systems from his June 2016 [facility] hospitalization were reviewed and revised as below Gen.: His weight has decreased from 92.986 kg at the 04/16/2015 hospitalization to present weight of 90.718 kg. Cardiovascular: He has a history of DVT and varicose veins. There is no documented hypertension heart failure or other cardiovascular disease. A stress test was reportedly done in 2008 with results not known. Respiratory: Smoking history is not known. He has been hospitalized several times at [facility] in the past few years with pneumonia. GI: He has chronic constipation, diverticulosis, and bowel resection 2004 not otherwise specified. There is no documented disorders with his liver gallbladder or exocrine pancreas. He had a swallowing evaluation during his hospital stay September 2014 which showed no evidence of laryngeal penetration or aspiration. There was coughing noted after swallowing thin liquid barium. He was placed on pureed diet with nectar thick liquids. : He has presumed BPH and had urinary retention during a August 2014 hospitalization. He is on Flomax and Proscar. He has been diagnosed with CKD stage III. There is no other documented kidney or bladder disorders Endocrine: He has hypothyroidism, hyperuricemia, and presumed hyperlipidemia. He does not have known diabetes Neurologic: He is on Dilantin presumably for seizures. He has not had large distribution strokes. He does have MRDD/Down syndrome as per above Hematology/oncology: He has no documented blood disorders or internal malignancy. He has had thrombocytopenia in the past that resolved. Psychiatric: He has no known anxiety, depression, or other mental health issues Musk skeletal: He has no known gout or osteoporosis. He has mild arthritis. Dermatologic. He has diagnosis of dyshidrotic eczema, onychomycosis, and chronic venous stasis pigmentation changes - Constitutional Vitals: Temp Pulse Resp BP Pulse Ox 98.5 F 84 22 117/63 98 11/07/16 06:35 11/07/16 06:35 11/07/16 06:35 11/07/16 06:35 11/07/16 06:35 Exam: Gen.: He is a well-developed obese male lying in bed who appears in no acute distress HEENT: Head is atraumatic and normocephalic. Eyes: EOMI. There is no scleral icterus. He has disconjugate gaze. Mouth: Mucosa is moist Neck: He has a large jowl. There is no thyromegaly or adenopathy noted. Heart: Regular without murmurs gallops or ectopics Lungs: No wheezes or crackles are heard Abdomen: Soft and nontender. No masses or guarding noted. Extremities: There is no cyanosis noted of his nails. He has chronic venous stasis pigmentation changes bilaterally. Dorsalis pedis pulses are 1-2 over 2 bilaterally. Posterior tibial pulses are not palpable. Has some erythema of the right forefoot with shallow erosions noted on the scan of the dorsum of the foot at the base of the second and third toes. Neurologic: Mental status: He is awake and follows a few commands but is essentially nonverbal. Cranial nerves: Smile is symmetric. Forehead wrinkles bilaterally. Tongue protrudes midline. EOMI. He has disconjugate gaze with probable left eye dominant. Motor: He does not understand testing for pronator drift. He has equal arm tone on passive range of motion of his arms. No further neurologic testing is attempted. Skin: He has venous stasis pigmentation changes of his lower legs bilaterally. He has dermal thickening with woody edema bilaterally. Internal Med - H&P Results - Labs CBC & Chem 7: 11/06/16 08:25 11/06/16 08:25
[2016-11-07] MEDS: risperiDONE 0.25 MG TABLET PO SCH ×2 (10:50→21:39)
[2016-11-07] MEDS: Primidone 50 MG TABLET PO SCH ×3 (10:51→21:39)
[2016-11-07] MEDS: Doxycycline 100 MG in 0.9 % Sodium Chloride Mini Bag 100 ML IVPB SCH ×2 (10:51→23:55)
[2016-11-07] MEDS: Finasteride 5 MG TABLET PO SCH (10:51)
[2016-11-07] MEDS ORDERED: *HR* Rivaroxaban 15 MG TABLET PO SCH (18:00)
[2016-11-07] MEDS: Lactobacillus 1 EACH CAP.SPRINK PO SCH (21:38)
[2016-11-07] MEDS: Niacin (24 HR) 500 MG TAB.ER.24H PO SCH (21:47)
[2016-11-07] MEDS ORDERED: Doxycycline 100 MG VIAL ONE ×2 (23:37→23:39)
[2016-11-08 06:29] LABS: Basophils # 0.1 K/mcL (0.0-0.2); Basophils % 0.7 %; Eosinophils # 0.1 K/mcL (0.0-0.6); Eosinophils % 1.9 %; Hematocrit 37.4 % (37.5-50.1); Hemoglobin 12.6 g/dL (12.9-16.9); Immature Granulocytes % 0.7 % (0-4); Lymphocytes # 1.5 K/mcL (0.6-4.6); Lymphocytes % 22.7 %; Mean Corpuscular HGB Conc 33.7 g/dL (31.6-35.5); Mean Corpuscular Hemoglobin 32.6 pg (28.0-33.3); Mean Corpuscular Volume 96.6 fL (83.0-100.0); Mean Platelet Volume 10.1 fL (9.4-12.4); Monocytes # 0.5 K/mcL (0.0-1.3); Neutrophils # 4.5 K/mcL (1.6-8.9); Platelet Count 201 K/mcL (140-400); Red Blood Count 3.87 M/mcL (4.19-5.50); Red Cell Distribution Width 15.9 % (11.5-14.5)
[2016-11-08 06:44] LABS: BUN/Creatinine Ratio 18 (6-26); Blood Urea Nitrogen 18 mg/dL (8-26); Calcium 8.6 mg/dL (8.6-10.8); Carbon Dioxide 25 mEq/L (19-29); Chloride 103 mEq/L (98-109); Glucose 91 mg/dL (70-99); Osmolality,Calculated 287 (280-300); Potassium 4.4 mEq/L (3.5-4.5); Sodium 138 mEq/L (136-145); eGFR For African Americans > 60 (> 60); eGFR For Non-African Americans > 60 (> 60)
[2016-11-08 06:57] VITALS: BP 125/70
[2016-11-08] MEDS: Finasteride 5 MG TABLET PO SCH (08:57)
[2016-11-08] MEDS: risperiDONE 0.25 MG TABLET PO SCH (08:57)
[2016-11-08] MEDS: Lactobacillus 1 EACH CAP.SPRINK PO SCH (08:57)
[2016-11-08] MEDS: Primidone 50 MG TABLET PO SCH (08:57)
--- NOTE | 2016-11-08 11:31 | Discharge Summary ---
Date of Encounter: 11/08/16 Time of Encounter: 11:10 - Discharge Diagnosis (1) Cellulitis Priority: Primary Status: Acute Qualifiers: Site of cellulitis: extremity Site of cellulitis of extremity: lower extremity Laterality: right Qualified Code(s): L03.115 - Cellulitis of right lower limb (2) Hyperuricemia Priority: Secondary Status: Chronic (3) Pneumonia Priority: Secondary Status: Acute Qualifiers: Pneumonia type: due to unspecified organism Laterality: right Lung location: upper lobe of lung Qualified Code(s): J18.1 - Lobar pneumonia, unspecified organism (4) CKD (chronic kidney disease) stage 3, GFR 30-59 ml/min Priority: Secondary Status: Chronic (5) Prostate enlargement Priority: Secondary Status: Chronic - Discharge Medications Prescriptions: Doxycycline 100 mg PO BID #10 capsule Lactobacillus [Culturelle] 1 each PO BID #10 cap.sprink Levothyroxine [Synthroid] 100 mcg PO 0630 #30 tablet Home Medications: Allopurinol [Zyloprim] 100 mg PO DAILY 11/11/14 [History] Docusate Sodium [Dulcolax Stool Softener] 100 mg PO BID 11/11/14 [History] Folic Acid/Mv,Fe,Min [Centrum Multivitamin Tab Chew] 1 each PO DAILY 11/11/14 [ History] Galzin 50 mg PO DAILY 11/11/14 [History] Magnesium Oxide [Magnesium] 400 mg PO DAILY 11/11/14 [History] Olopatadine HCl [Patanol] 5 ml OP BID 11/11/14 [History] Peg 400/Hypromellose/Glycerin [Artificial Tears Drops] 15 ml OP BID 11/11/14 [ History] Primidone [Mysoline] 50 mg PO TID 11/11/14 [History] Rivaroxaban [Xarelto] 20 mg PO DAILY 11/11/14 [History] Phenytoin [Dilantin] 100 mg PO TID 03/14/15 [History] Acetaminophen [Tylenol] 650 mg PO DAILY 09/15/15 [History] Calcium Carbonate/Vitamin D3 [Oyster Shell 500-Vit D3 200 Tb] 1 each PO QAM 10/23 [History] Finasteride [Proscar] 5 mg PO DAILY #30 tablet 04/19/16 [Rx] Tamsulosin HCl [Flomax] 0.4 mg PO DAILY #30 cap.er.24h 04/19/16 [Rx] Albuterol Neb [Proventil Neb] 2.5 mg IH Q4HR 07/05/16 [History] Loperamide [Imodium] 4 mg PO NOW PRN 07/05/16 [History] Nitroglycerin [Nitrostat] 0.4 mg SL PRN PRN 07/05/16 [History] Acetaminophen [Tylenol] 650 mg PO Q4HR PRN 10/29/16 [History] Atorvastatin [Lipitor] 20 mg PO HS 10/29/16 [History] Magnesium Hydroxide [Milk of Magnesia] 30 ml PO PRN PRN 10/29/16 [History] Niacin [Niaspan] 500 mg PO HS 10/29/16 [History] Polyethylene Glycol 3350 [MiraLAX] 17 gm PO BID 10/29/16 [History] risperiDONE [Risperidone] 0.5 mg PO BID 10/29/16 [History] Doxycycline 100 mg PO BID #10 capsule 11/08/16 [Rx] Lactobacillus [Culturelle] 1 each PO BID #10 cap.sprink 11/08/16 [Rx] Levothyroxine [Synthroid] 100 mcg PO 0630 #30 tablet 11/08/16 [Rx] Allergies/Adverse Reactions: Allergies cinnamon [Cinnamon] Allergy (Verified 11/06/16 07:27) See Comments clove Allergy (Verified 11/06/16 07:27) See Comments nut - unspecified Allergy (Verified 11/06/16 07:27) Anaphylaxis Sulfa (Sulfonamide Antibiotics) Allergy (Verified 11/06/16 07:27) Hives trimethoprim Allergy (Verified 11/06/16 07:27) Hives fragrances Allergy (Uncoded 11/06/16 07:51) See Comments unknwon Date of admission: 11/07/16 17:11 Primary care physician: Manisha Crespo - Patient Status Disposition: Home, Self-Care Condition: Good Overall status at discharge: patient is progressing back to baseline - Discharge Instructions Follow Up With: Manisha Crespo MD [Primary Care Provider] - 1 week - Diet and Activity Activity: resume usual activities as tolerated Diet: advance to your usual diet Hospital course: Mr. Tracey is a 66 year old male who was brought to the emergency room from a local prison after he was found to have fever of 101 F. He had been recently started on Keflex and Cipro for foot infection. He was evaluated in emergency room and had evidence of pneumonia and possible right foot cellulitis. He was admitted to [facility] for ongoing care needs. Initial orders were written by the emergency room physician. I saw him November 07 and performed a history and physical. He was started on IV Rocephin and doxycycline. Lactobacillus was given. He had significant clinical improvement with WBC normalizing to 6.7 on the day of discharge with 67.0% segs. He will continue with antibiotic and probiotic for 5 additional days at discharge. Azotemia resolved with creatinine decreasing to 0.99 and estimated GFR greater than 60. He remained afebrile. On the day of discharge close evaluation of the right foot showed stage II pressure sores on the medial malleolus (approximately 3 mm diameter), lateral malleolus (approximately 2 cm maximum diameter), and erosions at the base of the second and third toe (approximately 12 mm). He will continue wound care at the prison and have evaluation by wound clinic personnel as needed. TSH returned elevated in emergency room at 17.488. His Synthroid dose will be increased to 100 g daily. On November 08 he was stable for discharge back to the prison. He will follow with Dr. Crespo there. - Time Spent with Patient Total time spent providing and/or coordinating discharge services: - Constitutional Vitals: Temp Pulse Resp BP Pulse Ox 98.0 F 89 18 125/70 96 11/08/16 06:39 11/08/16 06:39 11/08/16 06:39 11/08/16 06:39 11/08/16 06:39 - VTE Documentation of Mechanical Device: Graduated compression elastic hosiery
[2016-11-08] MEDS ORDERED: *HR* Rivaroxaban 10 MG TABLET PO SCH (18:00)
== END 2016-11-08 12:36 | disposition home or self-care (01) | DRG 602 ==
LOC: EMEROOPIK 07:26 → INPPIK 07:26
PROVIDERS: ADMIT Internal Medicine; ATTEND Internal Medicine

== ENCOUNTER 2017-02-04 08:10 | Observation (INO) ==
--- NOTE | 2017-02-04 08:21 | Emergency Department Note ---
Disposition Clinical Impression: Generalized seizure, Pneumonia, Sepsis Disposition: Admitted As Inpatient Condition: Good Reasons to Return/Additional Instructions: Return for increased seizure activity. Continue present medications. Follow- up with your family physician in 3-4 days for recheck your blood pressure was normal to low today so please follow up with your doctor for recheck. 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 Description of Episode: bowel incontinence, post-event confusion -: minutes(s) Witnessed: yes - by other ([facility] staff) Associated trauma secondary to event: No Seizure History: known seizure disorder Place: home Possible Precipitating Event: none Associated symptoms: Reports: denies other symptoms Pain Scale: 0 Treatments prior to arrival: none - Related Data Home Medications Medication Instructions Recorded Confirmed Allopurinol [Zyloprim] 100 mg PO DAILY 11/11/14 02/04/17 Docusate Sodium [Dulcolax Stool 200 mg PO BID 11/11/14 02/04/17 Softener] Folic Acid/Mv,Fe,Min [Centrum 1 each PO DAILY 11/11/14 02/04/17 Multivitamin Tab Chew] Galzin 50 mg PO DAILY 11/11/14 02/04/17 Magnesium Oxide [Magnesium] 400 mg PO DAILY 11/11/14 02/04/17 Olopatadine HCl [Patanol] 5 ml OP DAILY 11/11/14 02/04/17 Peg 400/Hypromellose/Glycerin 15 ml OP BID 11/11/14 02/04/17 [Artificial Tears Drops] Primidone [Mysoline] 50 mg PO TID 11/11/14 02/04/17 Rivaroxaban [Xarelto] 20 mg PO DAILY 11/11/14 02/04/17 Phenytoin [Dilantin] 100 mg PO QID 03/14/15 02/04/17 Acetaminophen [Tylenol] 650 mg PO DAILY 09/15/15 02/04/17 Calcium Carbonate/Vitamin D3 1 each PO QAM 09/15/15 02/04/17 [Oyster Shell 500-Vit D3 200 Tb] Albuterol Neb [Proventil Neb] 2.5 mg IH Q4HR 07/05/16 02/04/17 Loperamide [Imodium] 4 mg PO NOW PRN 07/05/16 02/04/17 Nitroglycerin [Nitrostat] 0.4 mg SL PRN PRN 07/05/16 02/04/17 Acetaminophen [Tylenol] 650 mg PO Q4HR PRN 10/29/16 02/04/17 Atorvastatin [Lipitor] 20 mg PO HS 10/29/16 02/04/17 Magnesium Hydroxide [Milk of 30 ml PO PRN PRN 10/29/16 02/04/17 Magnesia] Niacin [Niaspan] 500 mg PO HS 10/29/16 02/04/17 Polyethylene Glycol 3350 [MiraLAX] 17 gm PO BID 10/29/16 02/04/17 risperiDONE [Risperidone] 0.5 mg PO BID 10/29/16 02/04/17 Previous Rx's Medication Instructions Recorded Finasteride [Proscar] 5 mg PO DAILY #30 tablet 04/19/16 Tamsulosin HCl [Flomax] 0.4 mg PO DAILY #30 cap.er.24h 04/19/16 Folic Acid 1 mg PO DAILY #15 tablet 01/30/17 Lactobacillus [Culturelle] 1 each PO BID #6 cap.sprink 01/30/17 Levothyroxine [Synthroid] 150 mcg PO DAILY #30 tablet 01/30/17 Allergies Allergy/AdvReac Type Severity Reaction Status Date / Time cinnamon [Cinnamon] Allergy See Verified 02/04/17 08:12 Comments clove Allergy See Verified 02/04/17 08:12 Comments nut - unspecified Allergy Anaphylaxis Verified 02/04/17 08:12 Sulfa (Sulfonamide Allergy Hives Verified 02/04/17 08:12 Antibiotics) trimethoprim Allergy Hives Verified 02/04/17 08:12 fragrances Allergy See Uncoded 02/04/17 08:12 Comments All systems ED: reviewed and negative except as stated. Review of Systems: As Per HPI Constitutional: Denies: fever, chills, weakness, weight change Eyes: Denies: eye pain, eye discharge, vision change ENT ED: Denies: ear pain, throat pain, dental pain, hearing loss, epistaxis, congestion, dysphagia Cardiovascular: Denies: chest pain, palpitations, dyspnea on exertion, edema, syncope Respiratory: Denies: cough, dyspnea, wheezes, hemoptysis, stridor Gastrointestinal: Denies: abdominal pain, nausea, vomiting, diarrhea, constipation, hematemesis, melena, hematochezia Genitourinary: Denies: urgency, dysuria, frequency, hematuria Musculoskeletal: Denies: back pain, neck pain, arthralgia, myalgia Integumentary: Denies: rash, abrasion, lesions Neurological: Denies: headache, weakness, numbness, paresthesias, confusion, abnormal gait, vertigo Psychiatric: Denies: anxiety, depression, suicidal thoughts, homicidal thoughts , auditory hallucinations, visual hallucinations Endocrine: Denies: fatigue Hematological/Lymphatic: Denies: easy bleeding, easy bruising Allergic/Immunologic: Denies: facial swelling, urticaria Past Medical History - Past Medical History Attestation: Yes The following information was validated with the patient. Source: old records reviewed, nursing notes reviewed, other ([facility] records) Medical history: Reports: arthritis, COPD, DVT, hyperlipidemia, peripheral artery disease, renal disease, seizures, thyroid disease, other Surgical history: Reports: colectomy, other Psychiatric history: Reports: no psych history - Social History Smoking Status: Never smoker Smokeless Tobacco Status: No Alcohol use: Reports: none Drug use: Reports: none Physical Exam - General Limitations: no limitations General appearance: alert, in no apparent distress - Head Head exam: atraumatic, normocephalic - Eye Eye exam: Present: normal appearance, PERRL, EOMI - ENT ENT exam: normal exam, normal oropharynx, mucous membranes moist - Neck Neck exam: Present: normal inspection, full ROM, trachea midline - Chest Chest inspection: Present: normal inspection, symmetric chest wall rise - Respiratory Respiratory exam: Present: normal lung sounds bilaterally - Cardiovascular Cardiovascular exam: Present: regular rate, normal rhythm, normal heart sounds - Abdominal Exam Abdominal exam: Present: soft, Non-Tender. Absent: tenderness, distention, guarding, rebound, rigidity - Extremities Exam Extremities exam: Present: normal inspection - Back Exam Back exam: Present: normal inspection - Neurological Exam Neurological exam: Present: alert - Psychiatric Psychiatric exam: Present: normal affect, normal mood - Skin Skin exam: Present: warm, intact, other (cool extremities) Course Vital Signs Temperature 98.0 F 02/04/17 08:13 Pulse Rate 111 02/04/17 08:13 Respiratory Rate 19 02/04/17 08:13 Blood Pressure 122/61 02/04/17 08:13 O2 Sat by Pulse Oximetry 94 02/04/17 08:13 Temperature 98.0 F 02/04/17 08:13 Pulse Rate 115 02/04/17 09:03 Respiratory Rate 18 02/04/17 09:03 Blood Pressure 110/52 02/04/17 09:03 O2 Sat by Pulse Oximetry 94 02/04/17 09:03 Oxygen Delivery Oxygen Delivery Nasal Cannula Seizure - MDM Narrative Medical decision making narrative: Case was discussed with Dr. Rios recent admission hospital. - Lab Data Lab results reviewed: Yes I reviewed the patient's lab results. Result diagrams: 02/04/17 08:42 Lab Results 02/04/17 Range/Units 08:42 WBC 27.9 H D (4.3-11.1) K/mcL RBC 4.66 (4.19-5.50) M/mcL Hgb 15.1 D (12.9-16.9) g/dL Hct 46.4 (37.5-50.1) % MCV 99.6 (83.0-100.0) fL MCH 32.4 (28.0-33.3) pg MCHC 32.5 (31.6-35.5) g/dL RDW 14.7 H (11.5-14.5) % Plt Count 241 (140-400) K/mcL MPV 10.4 (9.4-12.4) fL - Radiology Data Radiology results reviewed: Yes I reviewed the patient's radiology results.
[2017-02-04 08:52] LABS: Hematocrit 46.4 % (37.5-50.1); Hemoglobin 15.1 g/dL (12.9-16.9); Mean Corpuscular HGB Conc 32.5 g/dL (31.6-35.5); Mean Corpuscular Hemoglobin 32.4 pg (28.0-33.3); Mean Corpuscular Volume 99.6 fL (83.0-100.0); Mean Platelet Volume 10.4 fL (9.4-12.4); Platelet Count 241 K/mcL (140-400); Red Blood Count 4.66 M/mcL (4.19-5.50); Red Cell Distribution Width 14.7 % (11.5-14.5)
[2017-02-04 09:22] LABS: BUN/Creatinine Ratio 13 (6-26); Blood Urea Nitrogen 13 mg/dL (8-26); Calcium 9.3 mg/dL (8.6-10.8); Carbon Dioxide 28 mEq/L (19-29); Chloride 102 mEq/L (98-109); Glucose 114 mg/dL (70-99); Osmolality,Calculated 295 (280-300); Sodium 142 mEq/L (136-145); eGFR For African Americans > 60 (> 60); eGFR For Non-African Americans > 60 (> 60)
[2017-02-04 09:26] LABS: Lymphocytes # 2.2 K/mcL (0.6-4.6); Monocytes # 1.1 K/mcL (0.0-1.3); Neutrophils # 24.6 K/mcL (1.6-8.9); Platelet Estimate Normal (Normal)
[2017-02-04 09:29] LABS: Phenytoin (Dilantin) 9.2 mcg/mL (10-20)
[2017-02-04 09:35] LABS: Bilirubin,Urine Negative (Negative); Blood,Urine Negative (Negative); Clarity,Urine Clear (Clear); Color,Urine Yellow (Yellow); Glucose,Urine (UA) Normal (Normal); Ketones,Urine Negative (Negative); Leukocyte Esterase,Urine Negative (Negative); Nitrite,Urine Negative (Negative); PH,Urine 8.5 pH Units (5.0-8.0); Protein,Urine Negative (Neg-Trace); Urobilinogen,Urine Normal (Normal)
[2017-02-04] MEDS ORDERED: 0.9 % Sodium Chloride 1,000 ML IVC ONE ×2 (10:20→11:29)
[2017-02-04] MEDS ORDERED: Levofloxacin 500 MG/100 ML 500 MG/100 ML BAG IVPB ONE (10:21)
[2017-02-04] MEDS ORDERED: Phenytoin 500 MG in SYRINGE 1 EACH IVPB ONE (10:21)
[2017-02-04] MEDS ORDERED: MOM Conc 10 ML UD.LIQ PO PRN (11:29)
[2017-02-04] MEDS ORDERED: Naloxone 0.4 MG/ML INJ IVP PRN (11:29)
[2017-02-04] MEDS ORDERED: 0.9 % Sodium Chloride 1,000 ML IVC SCH (11:29)
[2017-02-04] MEDS ORDERED: Acetaminophen 325 MG TABLET PO PRN (11:29)
[2017-02-04] MEDS ORDERED: Nitroglycerin 0.4 MG TAB.SUBL SL PRN (11:29)
[2017-02-04] MEDS ORDERED: Ondansetron 4 MG/2 ML VIAL IVP PRN (11:29)
[2017-02-04] MEDS: Albuterol 2.5 MG/3 ML NEBULIZER IH SCH ×3 (14:18→20:26)
[2017-02-04] MEDS ORDERED: Ipratropium/Albuterol Neb 3 ML IH SCH (16:00)
[2017-02-04] MEDS: Primidone 50 MG TABLET PO SCH ×2 (16:37→23:25)
--- NOTE | 2017-02-04 16:57 | Internal Med History&Physical ---
Date of Encounter: 02/04/17 Time of Encounter: 16:30 Assessment and Plan (1) Seizures Current visit: No Status: Chronic Will increase Dilantin dose and check Mysoline level. (2) Pneumonia Current visit: Yes Status: Acute Will do chest CT to further evaluate. He has been started on IV Levaquin and lactobacillus. Qualifiers: Pneumonia type: due to unspecified organism Laterality: bilateral Lung location: unspecified part of lung Qualified Code(s): J18.9 - Pneumonia, unspecified organism (3) Leukocytosis Current visit: No Status: Acute Will order chest CT to further evaluate. Check labs in a.m. Qualifiers: Leukocytosis type: unspecified Qualified Code(s): D72.829 - Elevated white blood cell count, unspecified Internal Medicine - H&P: HPI Chief complaint: Seizure Admitted From: Home Plans for Post Hospital Care: Home History of present illness: Mr. Tracey is a 67 year old male who was brought to emergency room after personnel at the [facility] reported him to have had a seizure. He was evaluated and found to have leukocytosis with slight left shift. There was possible bilateral infiltrates seen on chest x-ray. He was admitted to [facility] floor for ongoing care needs. He is nonverbal and has MRDD/Down's syndrome. He was hospitalized at [facility] January 28- with leukocytosis of uncertain etiology. He was treated during hospitalization with Rocephin and discharged on oral Ceftin for 3 additional days. He is on Dilantin presumably for seizures. He has not had large distribution strokes seen on head CT 01/27/2017. Past Med Surg Social Fam HX - Past Medical History Medical history: arthritis, COPD, DVT, hyperlipidemia, peripheral artery disease , renal disease, seizures, thyroid disease, other Psychiatric history: no psych history - Past Surgical History Surgical History: colectomy, other - Social History Smoking Status: Never smoker Smokeless Tobacco Status: No Alcohol use: none Drug use: none - Family History Mother History Unknown: Yes Internal Medicine - H&P: Meds Allopurinol [Zyloprim] 100 mg PO DAILY 11/11/14 [History] Docusate Sodium [Dulcolax Stool Softener] 200 mg PO BID 11/11/14 [History] Folic Acid/Mv,Fe,Min [Centrum Multivitamin Tab Chew] 1 each PO DAILY 11/11/14 [ History] Galzin 50 mg PO DAILY 11/11/14 [History] Magnesium Oxide [Magnesium] 400 mg PO DAILY 11/11/14 [History] Olopatadine HCl [Patanol] 5 ml OP DAILY 11/11/14 [History] Peg 400/Hypromellose/Glycerin [Artificial Tears Drops] 15 ml OP BID 11/11/14 [ History] Primidone [Mysoline] 50 mg PO TID 11/11/14 [History] Rivaroxaban [Xarelto] 20 mg PO DAILY 11/11/14 [History] Phenytoin [Dilantin] 100 mg PO QID 03/14/15 [History] Acetaminophen [Tylenol] 650 mg PO DAILY 09/15/15 [History] Calcium Carbonate/Vitamin D3 [Oyster Shell 500-Vit D3 200 Tb] 1 each PO QAM 10/23 [History] Finasteride [Proscar] 5 mg PO DAILY #30 tablet 04/19/16 [Rx] Tamsulosin HCl [Flomax] 0.4 mg PO DAILY #30 cap.er.24h 04/19/16 [Rx] Albuterol Neb [Proventil Neb] 2.5 mg IH Q4HR 07/05/16 [History] Loperamide [Imodium] 4 mg PO NOW PRN 07/05/16 [History] Nitroglycerin [Nitrostat] 0.4 mg SL PRN PRN 07/05/16 [History] Acetaminophen [Tylenol] 650 mg PO Q4HR PRN 10/29/16 [History] Atorvastatin [Lipitor] 20 mg PO HS 10/29/16 [History] Magnesium Hydroxide [Milk of Magnesia] 30 ml PO PRN PRN 10/29/16 [History] Niacin [Niaspan] 500 mg PO HS 10/29/16 [History] Polyethylene Glycol 3350 [MiraLAX] 17 gm PO BID 10/29/16 [History] risperiDONE [Risperidone] 0.5 mg PO BID 10/29/16 [History] Folic Acid 1 mg PO DAILY #15 tablet 01/30/17 [Rx] Lactobacillus [Culturelle] 1 each PO BID #6 cap.sprink 01/30/17 [Rx] Levothyroxine [Synthroid] 150 mcg PO DAILY #30 tablet 01/30/17 [Rx] 3 Allergy/AdvReac Type Severity Reaction Status Date / Time cinnamon [Cinnamon] Allergy See Verified 02/04/17 08:12 Comments clove Allergy See Verified 02/04/17 08:12 Comments nut - unspecified Allergy Anaphylaxis Verified 02/04/17 08:12 Sulfa (Sulfonamide Allergy Hives Verified 02/04/17 08:12 Antibiotics) trimethoprim Allergy Hives Verified 02/04/17 08:12 fragrances Allergy See Uncoded 02/04/17 08:12 Comments All Systems PM: A 10-system review of systems was performed and is negative for pertinent findings except as documented above in the HPI. Review of systems: Review of systems from his [facility] hospitalization last week were reviewed and revised as below. Gen.: His weight has increased from 92.986 kg at the 04/16/2015 hospitalization to present weight of 102.087 kg. Cardiovascular: He has a history of DVT and varicose veins. There is no documented hypertension heart failure or other cardiovascular disease. A stress test was reportedly done in 2008 with results not known. Respiratory: Smoking history is not known. He has been hospitalized several times at [facility] in the past few years with pneumonia. GI: He has chronic constipation, diverticulosis, and bowel resection 2004 not otherwise specified. There is no documented disorders with his liver gallbladder or exocrine pancreas. He had a swallowing evaluation during his hospital stay September 2014 which showed no evidence of laryngeal penetration or aspiration. There was coughing noted after swallowing thin liquid barium. He was placed on pureed diet with nectar thick liquids. : He has presumed BPH and had urinary retention during a August 2014 hospitalization. He is on Flomax and Proscar. He has been diagnosed with CKD stage III. There is no other documented kidney or bladder disorders Endocrine: He has hypothyroidism, hyperuricemia, and presumed hyperlipidemia. He does not have known diabetes Neurologic: As per history of present illness Hematology/oncology: He has no documented blood disorders or internal malignancy. He has had thrombocytopenia in the past that resolved. Psychiatric: He has no known anxiety, depression, or other mental health issues Musk skeletal: He has no known gout or osteoporosis. He has mild arthritis. Dermatologic. He has diagnosis of dyshidrotic eczema, onychomycosis, and chronic venous stasis pigmentation changes - Constitutional Vitals: Temp Pulse Resp BP Pulse Ox 98.3 F 96 19 83/49 90 02/04/17 14:36 02/04/17 14:36 02/04/17 14:36 02/04/17 14:36 02/04/17 14:36 Exam: Gen.: He is a well-developed obese male lying quietly in bed who appears in no acute distress. HEENT: Head is atraumatic and normocephalic. 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 There is no scleral icterus. Mouth: He does not open his mouth well for examination. Neck: He has a large jowl. There is no thyromegaly or adenopathy noted. Heart: Regular without murmurs gallops or ectopics Lungs: No wheezes or crackles are heard. Abdomen: Soft and nontender. No masses or guarding are noted. Extremities: There is no cyanosis edema or clubbing noted. Dorsalis pedis and posterior tibial pulses are trace to 1+ palpable bilaterally. He has chronic venous stasis pigmentation changes of his feet. Neurologic: Mental status: He is nonverbal and does not follow commands. Cranial nerves: He does not make spontaneous facial movements or follow commands. Motor: He has equal arm tone on passive range of motion. No further neurologic testing was attempted. Skin: Warm and dry Internal Med - H&P Results - Labs CBC & Chem 7: 02/04/17 08:42 02/04/17 08:42
[2017-02-04] MEDS: 0.9 % Sodium Chloride 1,000 ML IVC SCH ×2 (18:01→23:09)
[2017-02-04] MEDS: Artificial Tears SOLN 15 ML BOTTLE OP SCH (23:11)
[2017-02-04] MEDS: risperiDONE 1 MG TABLET PO SCH (23:24)
[2017-02-04] MEDS: Lactobacillus 1 EACH CAP.SPRINK PO SCH (23:32)
[2017-02-04] MEDS: Niacin (24 HR) 500 MG TAB.ER.24H PO SCH (23:33)
[2017-02-05] MEDS: Albuterol 2.5 MG/3 ML NEBULIZER IH SCH ×3 (00:20→07:37)
[2017-02-05 06:06] LABS: Basophils # 0.1 K/mcL (0.0-0.2); Basophils % 0.3 %; Eosinophils # 0.1 K/mcL (0.0-0.6); Eosinophils % 0.5 %; Hematocrit 35.8 % (37.5-50.1); Hemoglobin 11.4 g/dL (12.9-16.9); Immature Granulocytes % 0.6 % (0-4); Lymphocytes % 9.6 %; Mean Corpuscular HGB Conc 31.8 g/dL (31.6-35.5); Mean Corpuscular Hemoglobin 32.3 pg (28.0-33.3); Mean Corpuscular Volume 101.4 fL (83.0-100.0); Mean Platelet Volume 10.5 fL (9.4-12.4); Monocytes # 0.7 K/mcL (0.0-1.3); Monocytes % 3.2 %; Neutrophils # 18.2 K/mcL (1.6-8.9); Platelet Count 194 K/mcL (140-400); Red Blood Count 3.53 M/mcL (4.19-5.50); Red Cell Distribution Width 15.5 % (11.5-14.5); Segmented Neutrophils % 85.8 %
[2017-02-05 06:26] LABS: BUN/Creatinine Ratio 14 (6-26); Blood Urea Nitrogen 17 mg/dL (8-26); Calcium 8.1 mg/dL (8.6-10.8); Carbon Dioxide 28 mEq/L (19-29); Chloride 107 mEq/L (98-109); Glucose 87 mg/dL (70-99); Osmolality,Calculated 297 (280-300); Potassium 4.2 mEq/L (3.5-4.5); Sodium 143 mEq/L (136-145); eGFR For African Americans > 60 (> 60); eGFR For Non-African Americans > 60 (> 60)
--- NOTE | 2017-02-05 10:12 | Internal Med Progress Note ---
Date of Encounter: 02/05/17 Time of Encounter: 10:05 - Assessment and plan (1) Seizures Current Visit: No Status: Chronic Assessment and plan: February 05. We will increase Dilantin to 200 mg 3 times a day. Mysoline level is pending (2) Pneumonia Current Visit: Yes Status: Acute Assessment and plan: Chest CT showed bilateral airspace disease. Continue Levaquin and Lactobacillus. We will order a swallowing evaluation since he has had recurrent episodes of pneumonia. Qualifiers: Pneumonia type: due to unspecified organism Laterality: bilateral Lung location: unspecified part of lung Qualified Code(s): J18.9 - Pneumonia, unspecified organism (3) Leukocytosis Current Visit: No Status: Acute Assessment and plan: February 05. Improved. Continue present regimen Qualifiers: Leukocytosis type: unspecified Qualified Code(s): D72.829 - Elevated white blood cell count, unspecified (4) Anemia Current Visit: No Status: Acute Assessment and plan: February 05. Anemia testing 01/30/2017 showed iron 83, transferrin saturation 52 %, transferrin 114, ferritin 527, B12 591, and folate 5.3. Continue folic acid. Qualifiers: Anemia type: folate deficiency Folate deficiency anemia type: unspecified folate deficiency Qualified Code(s): D52.9 - Folate deficiency anemia, unspecified - Subjective Interval history: February 05. There have been no new problems. - Constitutional Vitals: Temp Pulse Resp BP Pulse Ox 98.6 F 66 18 101/61 91 02/05/17 06:58 02/05/17 06:58 02/05/17 07:41 02/05/17 06:58 02/05/17 07:41 Exam: He is resting comfortably in bed and appears in no acute distress. His lungs are clear anteriorly. Heart is regular. Extremity show no edema. I reviewed his medications and lab results. Internal Medicine: Result - Labs CBC & Chem 7: 02/05/17 05:35 02/05/17 05:35 Labs: Short CBC 02/05/17 Range/Units 05:35 WBC 21.2 H (4.3-11.1) K/mcL Hgb 11.4 L D (12.9-16.9) g/dL Hct 35.8 L (37.5-50.1) % Plt Count 194 (140-400) K/mcL Neutrophils # 18.2 H (1.6-8.9) K/mcL BMP 02/05/17 05:35 Sodium 143 Potassium 4.2 Chloride 107 Carbon Dioxide 28 BUN 17 Creatinine 1.20 Glucose 87 Calcium 8.1 L - Impressions Impressions Chest CT 02/04/17 17:08 IMPRESSION: 1. The study is limited by significant respiratory motion degradation. 2. Redemonstration of slightly more prominent patchy airspace and ground-glass opacities with septal thickening throughout the right lung, and to a lesser extent the left lung. Overall findings are nonspecific, but may represent sequela of pulmonary edema versus atypical infection depending on the clinical presentation. 3. Chronic right greater than left shoulder degenerative changes with nonspecific small effusions. D/ / 02/04/2017 19:59:01 Silvio Portillo MD / [email or web address] Interpreting Provider: Silvio Portillo MD Consult Discharge Plan - Plan Additional Instructions: Return for increased seizure activity. Continue present medications. Follow- up with your family physician in 3-4 days for recheck your blood pressure was normal to low today so please follow up with your doctor for recheck. Referrals: NONE,PCP [Primary Care Provider] - 1 week
[2017-02-05] MEDS: risperiDONE 1 MG TABLET PO SCH ×2 (10:27→20:57)
[2017-02-05] MEDS: Levofloxacin 500 MG/100 ML 500 MG/100 ML BAG IVPB SCH (10:27)
[2017-02-05] MEDS: *HR* Rivaroxaban 10 MG TABLET PO SCH (10:27)
[2017-02-05] MEDS: Primidone 50 MG TABLET PO SCH ×3 (10:27→20:56)
[2017-02-05] MEDS ORDERED: Albuterol 2.5 MG/3 ML NEBULIZER IH PRN (10:46)
[2017-02-05] MEDS: Artificial Tears SOLN 15 ML BOTTLE OP SCH ×2 (10:59→20:56)
[2017-02-05] MEDS: Magnesium Oxide 400 MG TABLET PO SCH (11:00)
[2017-02-05] MEDS: Acetaminophen 325 MG TABLET PO SCH (11:00)
[2017-02-05] MEDS: Folic Acid 1 MG TABLET PO SCH (11:00)
[2017-02-05] MEDS: (Olopatadine Hcl [Patanol] 5 ML) OP SCH (11:00)
[2017-02-05] MEDS: Lactobacillus 1 EACH CAP.SPRINK PO SCH ×2 (11:00→20:59)
[2017-02-05] MEDS: Multivit/Ca/Min/Fe/FA 1 TAB TABLET PO SCH (11:00)
[2017-02-05] MEDS: Finasteride 5 MG TABLET PO SCH (11:00)
[2017-02-05] MEDS: Cholecalciferol (D-3) 1,000 UNIT TABLET PO SCH (11:01)
[2017-02-06] MEDS: Niacin (24 HR) 500 MG TAB.ER.24H PO SCH (03:27)
[2017-02-06 05:24] LABS: Basophils % 0.5 %; Eosinophils # 0.1 K/mcL (0.0-0.6); Eosinophils % 1.1 %; Hemoglobin 11.1 g/dL (12.9-16.9); Immature Granulocytes % 0.4 % (0-4); Lymphocytes # 1.3 K/mcL (0.6-4.6); Lymphocytes % 15.2 %; Mean Corpuscular HGB Conc 32.6 g/dL (31.6-35.5); Mean Corpuscular Hemoglobin 32.5 pg (28.0-33.3); Mean Corpuscular Volume 99.4 fL (83.0-100.0); Mean Platelet Volume 10.3 fL (9.4-12.4); Monocytes % 6.4 %; Neutrophils # 6.5 K/mcL (1.6-8.9); Platelet Count 173 K/mcL (140-400); Red Blood Count 3.42 M/mcL (4.19-5.50); Red Cell Distribution Width 15.6 % (11.5-14.5); Segmented Neutrophils % 76.4 %
[2017-02-06 05:25] LABS: Monocytes # 0.5 K/mcL (0.0-1.3)
[2017-02-06 05:42] LABS: BUN/Creatinine Ratio 15 (6-26); Blood Urea Nitrogen 13 mg/dL (8-26); Calcium 7.9 mg/dL (8.6-10.8); Carbon Dioxide 26 mEq/L (19-29); Chloride 106 mEq/L (98-109); Glucose 86 mg/dL (70-99); Osmolality,Calculated 289 (280-300); Potassium 3.9 mEq/L (3.5-4.5); Sodium 140 mEq/L (136-145); eGFR For African Americans > 60 (> 60); eGFR For Non-African Americans > 60 (> 60)
[2017-02-06 06:40] VITALS: BP 102/53
[2017-02-06] MEDS: Acetaminophen 325 MG TABLET PO SCH (08:31)
[2017-02-06] MEDS: Folic Acid 1 MG TABLET PO SCH (08:32)
[2017-02-06] MEDS: Multivit/Ca/Min/Fe/FA 1 TAB TABLET PO SCH (08:33)
[2017-02-06] MEDS: risperiDONE 1 MG TABLET PO SCH (08:33)
[2017-02-06] MEDS: Lactobacillus 1 EACH CAP.SPRINK PO SCH (08:34)
[2017-02-06] MEDS: Finasteride 5 MG TABLET PO SCH (08:34)
[2017-02-06] MEDS: Primidone 50 MG TABLET PO SCH (08:34)
[2017-02-06] MEDS: *HR* Rivaroxaban 10 MG TABLET PO SCH (08:34)
[2017-02-06] MEDS: Magnesium Oxide 400 MG TABLET PO SCH (08:34)
[2017-02-06] MEDS: Cholecalciferol (D-3) 1,000 UNIT TABLET PO SCH (08:34)
[2017-02-06] MEDS: (Olopatadine Hcl [Patanol] 5 ML) OP SCH (08:37)
[2017-02-06] MEDS: Levofloxacin 500 MG/100 ML 500 MG/100 ML BAG IVPB SCH (08:46)
--- NOTE | 2017-02-06 12:05 | Discharge Summary ---
Date of Encounter: 02/06/17 Time of Encounter: 11:55 - Discharge Diagnosis (1) Seizures Priority: Primary Status: Chronic (2) Pneumonia Priority: Secondary Status: Acute Qualifiers: Pneumonia type: due to unspecified organism Laterality: bilateral Lung location: unspecified part of lung Qualified Code(s): J18.9 - Pneumonia, unspecified organism (3) Anemia Priority: Secondary Status: Acute Qualifiers: Anemia type: folate deficiency Folate deficiency anemia type: unspecified folate deficiency Qualified Code(s): D52.9 - Folate deficiency anemia, unspecified - Discharge Medications Prescriptions: Lactobacillus [Culturelle] 1 each PO BID #10 cap.sprink levoFLOXacin [Levaquin] 500 mg PO DAILY #5 tablet Phenytoin ER [Dilantin ER] 200 mg PO Q8H #180 capsule Home Medications: Allopurinol [Zyloprim] 100 mg PO DAILY 11/11/14 [History] Docusate Sodium [Dulcolax Stool Softener] 200 mg PO BID 11/11/14 [History] Folic Acid/Mv,Fe,Min [Centrum Multivitamin Tab Chew] 1 each PO DAILY 11/11/14 [ History] Galzin 50 mg PO DAILY 11/11/14 [History] Magnesium Oxide [Magnesium] 400 mg PO DAILY 11/11/14 [History] Olopatadine HCl [Patanol] 5 ml OP DAILY 11/11/14 [History] Peg 400/Hypromellose/Glycerin [Artificial Tears Drops] 15 ml OP BID 11/11/14 [ History] Primidone [Mysoline] 50 mg PO TID 11/11/14 [History] Rivaroxaban [Xarelto] 20 mg PO DAILY 11/11/14 [History] Acetaminophen [Tylenol] 650 mg PO DAILY 09/15/15 [History] Calcium Carbonate/Vitamin D3 [Oyster Shell 500-Vit D3 200 Tb] 1 each PO QAM 10/23 [History] Finasteride [Proscar] 5 mg PO DAILY #30 tablet 04/19/16 [Rx] Tamsulosin HCl [Flomax] 0.4 mg PO DAILY #30 cap.er.24h 04/19/16 [Rx] Loperamide [Imodium] 4 mg PO NOW PRN 07/05/16 [History] Nitroglycerin [Nitrostat] 0.4 mg SL PRN PRN 07/05/16 [History] Acetaminophen [Tylenol] 650 mg PO Q4HR PRN 10/29/16 [History] Atorvastatin [Lipitor] 20 mg PO HS 10/29/16 [History] Magnesium Hydroxide [Milk of Magnesia] 30 ml PO PRN PRN 10/29/16 [History] Niacin [Niaspan] 500 mg PO HS 10/29/16 [History] Polyethylene Glycol 3350 [MiraLAX] 17 gm PO BID 10/29/16 [History] risperiDONE [Risperidone] 0.5 mg PO BID 10/29/16 [History] Folic Acid 1 mg PO DAILY #15 tablet 01/30/17 [Rx] Levothyroxine [Synthroid] 150 mcg PO DAILY #30 tablet 01/30/17 [Rx] Albuterol Neb [Proventil Neb] 2.5 mg IH Q4HR PRN #0 02/06/17 [Rx] Lactobacillus [Culturelle] 1 each PO BID #10 cap.sprink 02/06/17 [Rx] Phenytoin ER [Dilantin ER] 200 mg PO Q8H #180 capsule 02/06/17 [Rx] levoFLOXacin [Levaquin] 500 mg PO DAILY #5 tablet 02/06/17 [Rx] Allergies/Adverse Reactions: 3 Allergy/AdvReac Type Severity Reaction Status Date / Time cinnamon [Cinnamon] Allergy See Verified 02/04/17 08:12 Comments clove Allergy See Verified 02/04/17 08:12 Comments nut - unspecified Allergy Anaphylaxis Verified 02/04/17 08:12 Sulfa (Sulfonamide Allergy Hives Verified 02/04/17 08:12 Antibiotics) trimethoprim Allergy Hives Verified 02/04/17 08:12 fragrances Allergy See Uncoded 02/04/17 08:12 Comments Procedures/tests Complete & Pending: Procedures Performed prior 72 hours Category Date Time Status CT chest wo con [CT] Routine Cat Scan 02/04/17 17:08 Completed Date of admission: 02/04/17 11:10 Primary care physician: Manisha Crespo M.D. Consults: 02/05/17 09:25 Consult to Speech Therapy [CONS] Routine Comment: Evaluate, develop and implement POC Reason for Consult: Recurrent pneumonia rule out aspiration Call Completed: No - Patient Status Disposition: Home, Self-Care Condition: Good Overall status at discharge: patient is progressing back to baseline - Discharge Instructions Follow Up With: Manisha Crespo MD [Partnered Physician] - 1 week Additional Instructions: CBC with differential, CMP, Dilantin level in 2 days - Diet and Activity Activity: resume usual activities as tolerated Diet: other (Mechanical soft diet with spoon-fed honey thick liquids) Hospital course: Mr. Tracey is a 67 year old male who was brought to emergency room after personnel at the [facility] reported him to have had a seizure. He was evaluated and found to have leukocytosis with slight left shift. There was possible bilateral infiltrates seen on chest x-ray. He was admitted to [facility] for ongoing care needs. Initial orders were written by the emergency room physician. I saw him on February 04 and performed a history and physical. He was started on higher dose Dilantin 200 mg every 8 hours after additional loading dose was given in emergency room. A follow-up level will be done at the [facility] in 2 days. He had no further seizures during his hospital stay. A primidone level was ordered with results pending at time of discharge. Chest CT was done to further evaluate possible pneumonia. There was bilateral patchy airspace disease consistent with possible atypical infection. Levaquin was started in the emergency room and will be continued at discharge for 5 additional days. Lactobacillus will also be given. His WBC normalized and left shift improved by time of discharge. Modified barium swallow was done to evaluate for aspiration since he has had recurrent episodes of pneumonia. There was penetration without aspiration of barium on a cracker. The speech/swallowing therapist recommended mechanical soft diet with spoon-fed honey thick liquids. On February 06 he was stable for discharge back to the [facility] and will follow with his PCP Dr. Crespo. - Time Spent with Patient Total time spent providing and/or coordinating discharge services: - Constitutional Vitals: Temp Pulse Resp BP Pulse Ox 98.4 F 72 18 102/53 97 02/06/17 11:32 02/06/17 11:32 02/06/17 11:32 02/06/17 11:32 02/06/17 11:32
[2017-02-06] MEDS: Artificial Tears SOLN 15 ML BOTTLE OP SCH (13:31)
[2017-02-08 07:53] LABS: Phenobarbital (Reference Lab) 7.2 ug/mL (15.0-40.0)
== END 2017-02-06 14:04 | disposition home or self-care (01) ==
LOC: EMEROOPIK 08:10 → INPPIK 08:10
PROVIDERS: ADMIT Emergency Medicine; ATTEND Internal Medicine